=== PATIENT | male | born 1995 | race Caucasian/White ===

== ENCOUNTER 2017-09-12 20:11 | Emergency (ER) | payer OTHER ==
[2017-09-12 20:32] VITALS: TEMP 98.3
[2017-09-12 21:15] LABS: Basophils # (A) 0.1 k/uL (0-0.2); Basophils % (A) 1 %; Eosinophils # (A) 0.1 k/uL (0-0.7); Eosinophils % (A) 1 %; HCT 45.1 % (39.0-53.0); HGB 15.5 gm/dL (13.0-17.5); Lymphocytes # (A) 2.1 k/uL (1.0-4.8); Lymphocytes % (A) 27 %; MCHC 34.3 g/dL (31.0-37.0); MCV 81.5 fL (80.0-100.0); Mean Platelet Volume 6.6; Monocytes # (A) 0.4 k/uL (0-1.0); Monocytes % (A) 5 %; Neutrophils # (A) 5.1 k/uL (1.3-7.7); Neutrophils % (A) 64 %; Platelet Count 280 k/uL (150-450); RBC 5.53 m/uL (4.30-5.90); RDW 12.5 % (11.5-15.5); WBC 7.9 k/uL (3.8-10.6)
--- NOTE | 2017-09-12 21:21 | XR ---
EXAMINATION TYPE: XR chest 2V DATE OF EXAM: 09/12/2017 COMPARISON: 08/08/2011 HISTORY: Chest pain TECHNIQUE: Frontal and lateral views of the chest are obtained. FINDINGS: Heart and mediastinum are normal. Lungs are clear. Diaphragm is normal. Pulmonary vascular ity is normal. Bony thorax appears normal. IMPRESSION: Normal chest. No change.
[2017-09-12 21:25] LABS: ALT 22 U/L (21-72); AST 19 U/L (17-59); Albumin 4.9 g/dL (3.5-5.0); Alkaline Phosphatase 91 U/L (38-126); Anion Gap 16 mmol/L; Blood Urea Nitrogen 16 mg/dL (9-20); Calcium 10.3 mg/dL (8.4-10.2); Carbon Dioxide 18 mmol/L (22-30); Chloride 106 mmol/L (98-107); Glucose 95 mg/dL (74-99); Magnesium 1.8 mg/dL (1.6-2.3); Potassium 3.9 mmol/L (3.5-5.1); Sodium 140 mmol/L (137-145); Total Bilirubin 0.4 mg/dL (0.2-1.3); Total Protein 8.1 g/dL (6.3-8.2)
[2017-09-12 21:33] LABS: Creatine Kinase 84 U/L (55-170)
[2017-09-12] MEDS ORDERED: LORazepam 2 MG/ML INJ IV STA (21:39)
[2017-09-12 21:42] LABS: INR 1.1 (<1.2); Partial Thromboplastin Time 24.4 sec (22.0-30.0); Prothrombin Time 10.7 sec (9.0-12.0)
--- NOTE | 2017-09-12 21:42 | ED ---
General Adult HPI - General Chief complaint: Chest Pain Stated complaint: Chest Pain Time Seen by Provider: 09/12/17 21:21 Source: patient, family, RN notes reviewed Mode of arrival: ambulatory Limitations: no limitations - History of Present Illness Initial comments: Patient is a pleasant 22-year-old male presenting to the emergency Department with chest discomfort. Patient has had symptoms intermittently since April. Symptoms do seem somewhat worse the past week. Patient states symptoms worsened today following argument with his significant other. Patient has tightness in his chest. Patient does have associated dyspnea. Patient feels sweaty. Patient has tingling of his fingers of his right hand. Symptoms are not necessarily exertional. Onset today was during argument and not exertion. - Related Data Home Medications Medication Instructions Recorded Confirmed Timolol 0.5% Ophth Soln [Timoptic 1 drop BOTH EYES BID 09/12/17 09/12/17 0.5% Ophth Soln] Allergies Allergy/AdvReac Type Severity Reaction Status Date / Time sulfamethoxazole Allergy Anaphylaxis Verified 09/12/17 21:02 [From Bactrim] trimethoprim [From Bactrim] Allergy Anaphylaxis Verified 09/12/17 21:02 Review of Systems ROS Statement: Those systems with pertinent positive or pertinent negative responses have been documented in the HPI. ROS Other: All systems not noted in ROS Statement are negative. Constitutional: Denies: fever Eyes: Denies: eye pain ENT: Denies: ear pain Respiratory: Denies: cough Cardiovascular: Reports: chest pain Endocrine: Denies: fatigue Gastrointestinal: Denies: abdominal pain Genitourinary: Denies: dysuria Musculoskeletal: Denies: back pain Skin: Denies: rash Neurological: Denies: weakness Psychiatric: Reports: anxiety Past Medical History Additional Past Medical History / Comment(s): glaucoma History of Any Multi-Drug Resistant Organisms: None Reported Past Surgical History: Ear Surgery Additional Past Surgical History / Comment(s): cataract surgery, myringotomy, dental procedure Past Psychological History: No Psychological Hx Reported Smoking Status: Never smoker Past Alcohol Use History: None Reported Past Drug Use History: None Reported General Exam Limitations: no limitations General appearance: alert, in no apparent distress Head exam: Present: atraumatic Eye exam: Present: normal appearance, PERRL ENT exam: Present: normal oropharynx Neck exam: Present: normal inspection Respiratory exam: Present: normal lung sounds bilaterally, chest wall tenderness Cardiovascular Exam: Present: regular rate, normal rhythm Expanded Peripheral pulses: 2+: Radial (R), Radial (L), Dorsalis Pedis (R), Dorsalis Pedis (L) GI/Abdominal exam: Present: soft. Absent: distended, tenderness Extremities exam: Present: normal inspection. Absent: pedal edema, calf tenderness Neurological exam: Present: alert Psychiatric exam: Present: anxious Skin exam: Present: normal color Course Vital Signs 09/12/17 09/12/17 09/12/17 20:30 22:11 23:03 Temperature 98.3 F Pulse Rate 116 H 93 100 Respiratory 18 Rate Blood Pressure 139/80 123/76 125/72 O2 Sat by Pulse 100 99 97 Oximetry EKG Findings - EKG Comments: EKG Findings:: Sinus tachycardia 106. CA 172. QRS 78. QT 332. QTC 441. Normal axis. Normal QRS. No acute ST change. Medical Decision Making - Medical Decision Making Patient reexamined and significantly improved with Ativan. Patient is near symptom-free. Patient and family updated on results and need for follow-up. Patient does have an appointment with a new doctor on Saturday. - Lab Data Result diagrams: 09/12/17 21:02 09/12/17 21:02 Lab Results 09/12/17 09/12/17 09/12/17 Range/Units 21:02 21:02 21:02 WBC 7.9 (3.8-10.6) k/uL RBC 5.53 (4.30-5.90) m/uL Hgb 15.5 (13.0-17.5) gm/dL Hct 45.1 (39.0-53.0) % MCV 81.5 (80.0-100.0) fL MCH 28.0 (25.0-35.0) pg MCHC 34.3 (31.0-37.0) g/dL RDW 12.5 (11.5-15.5) % Plt Count 280 (150-450) k/uL Neutrophils % 64 % Lymphocytes % 27 % Monocytes % 5 % Eosinophils % 1 % Basophils % 1 % Neutrophils # 5.1 (1.3-7.7) k/uL Lymphocytes # 2.1 (1.0-4.8) k/uL Monocytes # 0.4 (0-1.0) k/uL Eosinophils # 0.1 (0-0.7) k/uL Basophils # 0.1 (0-0.2) k/uL PT (9.0-12.0) sec INR (<1.2) APTT (22.0-30.0) sec Sodium 140 (137-145) mmol/L Potassium 3.9 (3.5-5.1) mmol/L Chloride 106 (98-107) mmol/L Carbon Dioxide 18 L (22-30) mmol/L Anion Gap 16 mmol/L BUN 16 (9-20) mg/dL Creatinine 0.90 (0.66-1.25) mg/dL Est GFR (MDRD) Af Amer >60 (>60 ml/min/1.73 sqM) Est GFR (MDRD) Non-Af >60 (>60 ml/min/1.73 sqM) Glucose 95 (74-99) mg/dL Calcium 10.3 H (8.4-10.2) mg/dL Magnesium 1.8 (1.6-2.3) mg/dL Total Bilirubin 0.4 (0.2-1.3) mg/dL AST 19 (17-59) U/L ALT 22 (21-72) U/L Alkaline Phosphatase 91 (38-126) U/L Total Creatine Kinase 84 (55-170) U/L CK-MB (CK-2) 0.7 (0.0-2.4) ng/mL CK-MB (CK-2) Rel Index 0.8 Troponin I <0.012 (0.000-0.034) ng/mL Total Protein 8.1 (6.3-8.2) g/dL Albumin 4.9 (3.5-5.0) g/dL 09/12/17 Range/Units 21:02 WBC (3.8-10.6) k/uL RBC (4.30-5.90) m/uL Hgb (13.0-17.5) gm/dL Hct (39.0-53.0) % MCV (80.0-100.0) fL MCH (25.0-35.0) pg MCHC (31.0-37.0) g/dL RDW (11.5-15.5) % Plt Count (150-450) k/uL Neutrophils % % Lymphocytes % % Monocytes % % Eosinophils % % Basophils % % Neutrophils # (1.3-7.7) k/uL Lymphocytes # (1.0-4.8) k/uL Monocytes # (0-1.0) k/uL Eosinophils # (0-0.7) k/uL Basophils # (0-0.2) k/uL PT 10.7 (9.0-12.0) sec INR 1.1 (<1.2) APTT 24.4 (22.0-30.0) sec Sodium (137-145) mmol/L Potassium (3.5-5.1) mmol/L Chloride (98-107) mmol/L Carbon Dioxide (22-30) mmol/L Anion Gap mmol/L BUN (9-20) mg/dL Creatinine (0.66-1.25) mg/dL Est GFR (MDRD) Af Amer (>60 ml/min/1.73 sqM) Est GFR (MDRD) Non-Af (>60 ml/min/1.73 sqM) Glucose (74-99) mg/dL Calcium (8.4-10.2) mg/dL Magnesium (1.6-2.3) mg/dL Total Bilirubin (0.2-1.3) mg/dL AST (17-59) U/L ALT (21-72) U/L Alkaline Phosphatase (38-126) U/L Total Creatine Kinase (55-170) U/L CK-MB (CK-2) (0.0-2.4) ng/mL CK-MB (CK-2) Rel Index Troponin I (0.000-0.034) ng/mL Total Protein (6.3-8.2) g/dL Albumin (3.5-5.0) g/dL - Radiology Data Radiology results: image reviewed (Chest x-ray shows no acute process) Disposition Clinical Impression: Chest pain Disposition: HOME SELF-CARE Condition: Stable Instructions: Chest Pain (ED) Additional Instructions: Please follow-up with your new physician Saturday as scheduled. Return for increased pain, difficulty breathing, worsening or changing symptoms or other concerns. Consider cardiac echo. Referrals: Jose Guadalupe Dolan MD [Primary Care Provider] - 1-2 days Time of Disposition: 23:08
[2017-09-12 21:43] LABS: Creatine Kinase MB 0.7 ng/mL (0.0-2.4)
[2017-09-12 21:46] LABS: Troponin I <0.012 ng/mL (0.000-0.034)
[2017-09-12 22:12] VITALS: RESP 18
[2017-09-12 23:04] VITALS: BP 125/72; PULSE 100
== END 2017-09-12 23:20 | disposition home or self-care (01) ==
LOC: EC 20:11
DX: R07.89 Other chest pain (principal); R06.00 Dyspnea, unspecified; R20.2 Paresthesia of skin; F41.9 Anxiety disorder, unspecified; H40.9 Unspecified glaucoma; Z79.899 Other long term (current) drug therapy; Z88.1 Allergy status to other antibiotic agents
CPT/HCPCS: 36415; 93005; 80053; 82550; 82553; 83735; 84484; 85025; 85610; 85730; 71046; 99285; 96374; J2060

== ENCOUNTER 2017-10-03 22:38 | Emergency (ER) | payer OTHER ==
[2017-10-03 22:48] VITALS: RESP 18; TEMP 97.6
[2017-10-03] MEDS ORDERED: SODIUM CHLORIDE 0.9% 1,000 ML IV STA ×2 (23:01)
[2017-10-03] MEDS ORDERED: MORPHINE SULFATE 4 MG/ML SYRINGE IV STA (23:01)
[2017-10-03] MEDS ORDERED: SODIUM CHLORIDE 0.9% 500 ML IV STA (23:01)
[2017-10-03] MEDS ORDERED: LORazepam 2 MG/ML INJ IV STA (23:02)
[2017-10-03] MEDS ORDERED: RX INFO: IV CONTRAST WAS GIVEN 1 EACH MISC MISCELLANE PRN (23:03)
--- NOTE | 2017-10-03 23:04 | ED ---
General Adult HPI - General Chief complaint: Chest Pain Stated complaint: chest pain Time Seen by Provider: 10/03/17 22:42 Source: patient, EMS, RN notes reviewed, old records reviewed Mode of arrival: EMS Limitations: no limitations - History of Present Illness Initial comments: This is a 22-year-old male the ER for evaluation of chest pain. Anterior left- sided chest pain epigastric chest pain. Patient was evaluated in the ER recently for similar issues no cause found, did have outpatient ultrasound unsure of results. Patient denies recent travel history no sick contacts. No fevers no significant cough or congestion. Patient denies shortness of breath. Patient states he could be a little dehydrated denies drugs or alcohol use. Denies smoking. Patient states chest pain is anterior started tonight and currently is associated with mild shortness of breath - Related Data Home Medications Medication Instructions Recorded Confirmed Timolol 0.5% Ophth Soln [Timoptic 1 drop BOTH EYES BID 09/12/17 10/03/17 0.5% Ophth Soln] Ergocalciferol [Vitamin D2] 100,000 unit PO TUSA 10/03/17 10/03/17 Levothyroxine Sodium [Synthroid] 88 mcg PO HS 10/03/17 10/03/17 Ranitidine HCl [Zantac] 300 mg PO DAILY 10/03/17 10/03/17 Allergies Allergy/AdvReac Type Severity Reaction Status Date / Time sulfamethoxazole Allergy Anaphylaxis Verified 09/12/17 21:02 [From Bactrim] trimethoprim [From Bactrim] Allergy Anaphylaxis Verified 09/12/17 21:02 Review of Systems ROS Statement: Those systems with pertinent positive or pertinent negative responses have been documented in the HPI. ROS Other: All systems not noted in ROS Statement are negative. Past Medical History Additional Past Medical History / Comment(s): glaucoma History of Any Multi-Drug Resistant Organisms: None Reported Past Surgical History: Ear Surgery Additional Past Surgical History / Comment(s): cataract surgery, myringotomy, dental procedure Past Psychological History: No Psychological Hx Reported Smoking Status: Never smoker Past Alcohol Use History: None Reported Past Drug Use History: None Reported General Exam Limitations: no limitations General appearance: alert, in no apparent distress, anxious Head exam: Present: atraumatic, normocephalic, normal inspection Eye exam: Present: normal appearance, PERRL, EOMI. Absent: scleral icterus, conjunctival injection, periorbital swelling ENT exam: Present: normal exam, mucous membranes dry Neck exam: Present: normal inspection. Absent: tenderness, meningismus, lymphadenopathy Respiratory exam: Present: normal lung sounds bilaterally, accessory muscle use , prolonged expiratory. Absent: respiratory distress, wheezes, rales, rhonchi, stridor Cardiovascular Exam: Present: normal rhythm, tachycardia, normal heart sounds. Absent: systolic murmur, diastolic murmur, rubs, gallop, clicks GI/Abdominal exam: Present: soft, normal bowel sounds. Absent: distended, tenderness, guarding, rebound, rigid Extremities exam: Present: normal inspection, full ROM, normal capillary refill. Absent: tenderness, pedal edema, joint swelling, calf tenderness Back exam: Present: normal inspection Neurological exam: Present: alert, oriented X3, CN II-XII intact Psychiatric exam: Present: normal affect, normal mood Skin exam: Present: warm, dry, intact, normal color. Absent: rash Course Vital Signs 10/03/17 22:39 Temperature 97.6 F Pulse Rate 97 Respiratory 18 Rate Blood Pressure 133/84 O2 Sat by Pulse 98 Oximetry - Reevaluation(s) Reevaluation #1: 10/03/17 23:38 Patient does have improvement with pain control, anxiolysis Reevaluation #2: 10/03/17 23:38 Medical record including prior ER visit are reviewed EKG Findings - EKG Comments: EKG Findings:: EKG shows sinus tach rate of 102, GA 154, QRS 78, QTC 432 Medical Decision Making - Medical Decision Making 19 female the ER for evaluation of chest pain. CT negative. Patient will continue outpatient workup in regards to cause of his chest pain. - Lab Data Result diagrams: 10/03/17 23:09 10/03/17 23:09 Lab Results 10/03/17 10/03/17 Range/Units 23:09 23:09 WBC 6.4 (3.8-10.6) k/uL RBC 4.83 (4.30-5.90) m/uL Hgb 13.9 (13.0-17.5) gm/dL Hct 38.2 L (39.0-53.0) % MCV 79.0 L (80.0-100.0) fL MCH 28.7 (25.0-35.0) pg MCHC 36.3 (31.0-37.0) g/dL RDW 12.3 (11.5-15.5) % Plt Count 228 (150-450) k/uL Neutrophils % 63 % Lymphocytes % 27 % Monocytes % 6 % Eosinophils % 1 % Basophils % 1 % Neutrophils # 4.0 (1.3-7.7) k/uL Lymphocytes # 1.7 (1.0-4.8) k/uL Monocytes # 0.4 (0-1.0) k/uL Eosinophils # 0.1 (0-0.7) k/uL Basophils # 0.0 (0-0.2) k/uL Sodium 141 (137-145) mmol/L Potassium 3.4 L (3.5-5.1) mmol/L Chloride 108 H (98-107) mmol/L Carbon Dioxide 18 L (22-30) mmol/L Anion Gap 15 mmol/L BUN 18 (9-20) mg/dL Creatinine 0.80 (0.66-1.25) mg/dL Est GFR (CKD-EPI)AfAm >90 (>60 ml/min/1.73 sqM) Est GFR (CKD-EPI)NonAf >90 (>60 ml/min/1.73 sqM) Glucose 87 (74-99) mg/dL Calcium 9.5 (8.4-10.2) mg/dL Magnesium 1.8 (1.6-2.3) mg/dL Total Bilirubin 0.4 (0.2-1.3) mg/dL AST 18 (17-59) U/L ALT 22 (21-72) U/L Alkaline Phosphatase 74 (38-126) U/L Total Protein 7.0 (6.3-8.2) g/dL Albumin 4.2 (3.5-5.0) g/dL Lipase 141 (23-300) U/L - Radiology Data Radiology results: report reviewed (CTA chest negative for acute disease), image reviewed Disposition Clinical Impression: Chest pain Disposition: HOME SELF-CARE Condition: Good Instructions: Chest Pain (ED) Referrals: Jose Guadalupe Dolan MD [Primary Care Provider] - 1-2 days
[2017-10-03 23:26] LABS: Basophils % (A) 1 %; Eosinophils # (A) 0.1 k/uL (0-0.7); Eosinophils % (A) 1 %; HCT 38.2 % (39.0-53.0); HGB 13.9 gm/dL (13.0-17.5); Lymphocytes # (A) 1.7 k/uL (1.0-4.8); Lymphocytes % (A) 27 %; MCH 28.7 pg (25.0-35.0); MCHC 36.3 g/dL (31.0-37.0); Mean Platelet Volume 6.4; Monocytes # (A) 0.4 k/uL (0-1.0); Monocytes % (A) 6 %; Neutrophils % (A) 63 %; Platelet Count 228 k/uL (150-450); RBC 4.83 m/uL (4.30-5.90); RDW 12.3 % (11.5-15.5); WBC 6.4 k/uL (3.8-10.6)
--- NOTE | 2017-10-03 23:28 | CT ---
EXAMINATION TYPE: CT angio chest DATE OF EXAM: 10/03/2017 11:22 PM COMPARISON: NONE HISTORY: No prev. CT chest. Chest pain. hx. of asthma. CT DLP: 134.70 mGycm Automated exposure control for dose reduction was used. CONTRAST: CTA scan of the thorax is performed with IV Contrast, patient injected with 60 mL of Omnipaque 350, p ulmonary embolism protocol. There are 3-D post processed images.. FINDINGS: The lungs are clear of infiltrate. There is no evidence of pleural effusion. There is no evidence of a pulmonary mass. Thoracic aorta appears normal. There is no sign of aneurysm or dissection. There is normal contrast o pacification of the pulmonary arteries. I see no filling defect. There is no mediastinal adenopathy. There are no hilar masses. There is no pericardial effusion. Heart size is normal. The bony thorax appears intact. There is a 1 cm right bronchial lymph node. IMPRESSION: NEGATIVE CT ANGIOGRAM OF THE CHEST. NO EVIDENCE OF PULMONARY EMBOLISM.
[2017-10-03 23:35] LABS: ALT 22 U/L (21-72); AST 18 U/L (17-59); Albumin 4.2 g/dL (3.5-5.0); Alkaline Phosphatase 74 U/L (38-126); Anion Gap 15 mmol/L; Blood Urea Nitrogen 18 mg/dL (9-20); Calcium 9.5 mg/dL (8.4-10.2); Carbon Dioxide 18 mmol/L (22-30); Chloride 108 mmol/L (98-107); Glucose 87 mg/dL (74-99); Lipase 141 U/L (23-300); Potassium 3.4 mmol/L (3.5-5.1); Sodium 141 mmol/L (137-145); Total Bilirubin 0.4 mg/dL (0.2-1.3)
[2017-10-03] MEDS ORDERED: POTASSIUM CHLORIDE ER 20 MEQ TAB.ER PO STA (23:38)
[2017-10-03 23:44] LABS: D-Dimer <0.17 mg/L FEU (<0.60); INR 1.1 (<1.2); Partial Thromboplastin Time 24.6 sec (22.0-30.0); Prothrombin Time 11.1 sec (9.0-12.0)
[2017-10-03 23:48] LABS: Creatine Kinase 90 U/L (55-170)
[2017-10-04 00:01] LABS: Creatine Kinase MB 0.9 ng/mL (0.0-2.4); Troponin I <0.012 ng/mL (0.000-0.034)
[2017-10-04 00:05] VITALS: BP 113/68
[2017-10-04 00:25] VITALS: PULSE 98
== END 2017-10-04 00:25 | disposition home or self-care (01) ==
LOC: EC 22:38
DX: R07.89 Other chest pain (principal); R00.0 Tachycardia, unspecified; R06.02 Shortness of breath; R10.13 Epigastric pain; H40.9 Unspecified glaucoma; Z79.899 Other long term (current) drug therapy; Z88.1 Allergy status to other antibiotic agents
CPT/HCPCS: 36415; 93005; 85379; 80053; 82550; 82553; 83690; 83735; 84484; 85025; 85610; 85730; 71275; 99285; 96374; 96375; 96361; J2060; J2270; Q9967

== ENCOUNTER 2017-12-12 19:07 | Emergency (ER) | payer OTHER ==
[2017-12-12 19:13] VITALS: TEMP 99
[2017-12-12] MEDS ORDERED: SODIUM CHLORIDE 0.9% 500 ML IV STA (19:32)
[2017-12-12] MEDS ORDERED: KETOROLAC 30 MG/ML 1 ML VIAL IVP STA (19:32)
[2017-12-12] MEDS ORDERED: CIPROFLOXACIN-DEXAMETH 0.3-0.1% DROPS 7.5 ML BTL LEFT EAR STA (19:39)
--- NOTE | 2017-12-12 19:39 | ED ---
Chest Pain HPI - General Chief Complaint: Chest Pain Stated Complaint: Chest pain Time Seen by Provider: 12/12/17 19:15 Source: patient Mode of arrival: ambulatory Limitations: no limitations - History of Present Illness Initial Comments: 22-year-old male patient presents to the emergency department today for complaints of left-sided chest pain that started around 1:30 this afternoon. Patient states he has been having intermittent episodes of this chest pain since July. Patient states that the pain feels like a knife is stabbing him in the chest. He states he does feel short of breath at times with this. States that he was at work today when the pain started, states that he became very dizzy and blacked out. States that he was able to make it to a chair prior to losing consciousness. Patient denies any nausea or vomiting. Patient states he is also having severe left ear pain and has having bloody drainage from the ear. He denies any fevers or chills. Denies any cough or congestion. Patient denies any recent rash, abdominal pain, diarrhea, constipation, back pain, numbness, tingling, weakness, hematuria, dysuria, urinary urgency, urinary frequency, headache, visual changes, or any other complaints. - Related Data Home Medications Medication Instructions Recorded Confirmed Timolol 0.5% Ophth Soln [Timoptic 1 drop BOTH EYES BID 09/12/17 12/12/17 0.5% Ophth Soln] Ergocalciferol [Vitamin D2] 50,000 unit PO TUFR 10/03/17 12/12/17 Levothyroxine Sodium [Synthroid] 88 mcg PO DAILY 10/03/17 12/12/17 ALPRAZolam [Xanax] 0.25 mg PO BID PRN 12/12/17 12/12/17 Acetaminophen [Tylenol] 325 mg PO Q4H PRN 12/12/17 12/12/17 Ibuprofen [Motrin Ib] 400 mg PO Q6H PRN 12/12/17 12/12/17 Previous Rx's Medication Instructions Recorded Amoxicillin 875 mg PO Q12HR #20 tablet 12/12/17 Ciprofloxacin-Hc Otic Susp [Cipro 3 drops LEFT EAR BID #15 ml 12/12/17 Hc Otic Suspension] Ibuprofen [Motrin] 600 mg PO Q8HR PRN #30 tab 12/12/17 Allergies Allergy/AdvReac Type Severity Reaction Status Date / Time sulfamethoxazole Allergy Anaphylaxis Verified 12/12/17 20:14 [From Bactrim] trimethoprim [From Bactrim] Allergy Anaphylaxis Verified 12/12/17 20:14 Review of Systems ROS Statement: Those systems with pertinent positive or pertinent negative responses have been documented in the HPI. ROS Other: All systems not noted in ROS Statement are negative. EKG Findings - EKG Comments: EKG Findings:: EKG obtained in 1925 shows normal sinus rhythm with a ventricular rate of 94, AK interval 164, QRS duration 88, QT 344, QTC 430. No evidence of ST elevation or depression. Past Medical History Additional Past Medical History / Comment(s): glaucoma History of Any Multi-Drug Resistant Organisms: None Reported Past Surgical History: Ear Surgery Additional Past Surgical History / Comment(s): cataract surgery, myringotomy, dental procedure Past Psychological History: No Psychological Hx Reported Smoking Status: Never smoker Past Alcohol Use History: None Reported Past Drug Use History: None Reported General Exam Limitations: no limitations General appearance: alert, in no apparent distress, other (This is a well- developed, well-nourished adult male patient in no acute distress. Vital signs upon presentation are temperature 99.2F, pulse 88, respirations 16, blood pressure 122/74, pulse ox 98% on room air.) Eye exam: Present: normal appearance, PERRL, EOMI. Absent: scleral icterus, conjunctival injection, periorbital swelling ENT exam: Present: normal exam, normal oropharynx, mucous membranes moist. Absent: TM's normal bilaterally (Left tympanic membrane is bulging, erythematous , and there is frothy discharge near the tympanic membrane, partially obscuring the tympanic membrane.) Neck exam: Present: normal inspection. Absent: tenderness, meningismus, lymphadenopathy Respiratory exam: Present: normal lung sounds bilaterally. Absent: respiratory distress, wheezes, rales, rhonchi, stridor, chest wall tenderness Cardiovascular Exam: Present: regular rate, normal rhythm, normal heart sounds. Absent: systolic murmur, diastolic murmur, rubs, gallop, clicks GI/Abdominal exam: Present: soft, normal bowel sounds. Absent: distended, tenderness, guarding, rebound, rigid Neurological exam: Present: alert, oriented X3, CN II-XII intact Psychiatric exam: Present: normal affect, normal mood Skin exam: Present: warm, dry, intact, normal color. Absent: rash Course Vital Signs 12/12/17 19:09 Temperature 99 F Pulse Rate 88 Respiratory 16 Rate Blood Pressure 122/74 O2 Sat by Pulse 98 Oximetry Chest Pain MDM - MDM RADIOLOGY:Two-view x-ray of the chest was obtained. The lungs are clear. Pleural spaces are negative. Cardiac silhouette is not enlarged. The mediastinal pleural Kirby are unremarkable. Skeletal structures are intact without focal findings. Soft tissues are unremarkable. Impression by Dr. Lisa Vargas shows no acute process. 22-year-old male patient presented to the emergency department today for evaluation of left-sided chest pain and syncopal episode. Physical examination is unremarkable. EKG shows normal sinus rhythm. Labs are unremarkable. D- dimer is negative, troponins negative. Chest x-ray shows no acute cardiopulmonary process. Patient was also complaining of some left-sided ear pain. Evaluation of the tympanic membrane does reveal erythema with frothy drainage obscuring the TM. 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 I did also give name for referral to cardiology for possible Holter monitor placement. Did discuss findings and results of both patient and his mother. Patient will be given a prescription for amoxicillin, Cipro eardrops, and ibuprofen for pain control. Return parameters discussed in detail. He verbalizes understanding and agrees with this plan. Disposition Clinical Impression: Rupture of left tympanic membrane, Chest pain Disposition: HOME SELF-CARE Condition: Good Instructions: Chest Pain (ED), Ruptured Eardrum (ED) Additional Instructions: Take medications as directed. Follow-up with ENT specialist for further evaluation. Up with cardiology for further evaluation. Return here immediately for any new, worsening, or concerning symptoms. Prescriptions: Amoxicillin 875 mg PO Q12HR #20 tablet Ciprofloxacin-Hc Otic Susp [Cipro Hc Otic Suspension] 3 drops LEFT EAR BID #15 ml Ibuprofen [Motrin] 600 mg PO Q8HR PRN #30 tab PRN Reason: Pain Is patient prescribed a controlled substance at d/c from ED?: No Referrals: Markos Cristobal NPC [REFERRING] - 1-2 days Brian Renae DO [Doctor of Osteopathic Medicine] - 1-2 days Kirk Garcia MD [STAFF PHYSICIAN] - 1-2 days Time of Disposition: 21:04
[2017-12-12 20:01] LABS: Basophils % (A) 0 %; Eosinophils # (A) 0.2 k/uL (0-0.7); Eosinophils % (A) 2 %; HCT 42.8 % (39.0-53.0); HGB 14.6 gm/dL (13.0-17.5); Lymphocytes # (A) 1.5 k/uL (1.0-4.8); Lymphocytes % (A) 15 %; MCH 27.9 pg (25.0-35.0); MCHC 34.1 g/dL (31.0-37.0); MCV 81.8 fL (80.0-100.0); Mean Platelet Volume 6.6; Monocytes # (A) 0.6 k/uL (0-1.0); Monocytes % (A) 6 %; Neutrophils # (A) 7.8 k/uL (1.3-7.7); Neutrophils % (A) 76 %; Platelet Count 210 k/uL (150-450); RBC 5.23 m/uL (4.30-5.90); RDW 12.6 % (11.5-15.5); WBC 10.2 k/uL (3.8-10.6)
[2017-12-12 20:14] LABS: Partial Thromboplastin Time 23.8 sec (22.0-30.0); Prothrombin Time 10.2 sec (9.0-12.0)
[2017-12-12 20:16] LABS: D-Dimer <0.17 mg/L FEU (<0.60)
[2017-12-12 20:24] LABS: Creatine Kinase 52 U/L (55-170)
[2017-12-12 20:25] LABS: ALT 31 U/L (21-72); AST 18 U/L (17-59); Albumin 4.7 g/dL (3.5-5.0); Alkaline Phosphatase 81 U/L (38-126); Anion Gap 16 mmol/L; Blood Urea Nitrogen 15 mg/dL (9-20); Calcium 9.8 mg/dL (8.4-10.2); Carbon Dioxide 22 mmol/L (22-30); Chloride 104 mmol/L (98-107); Glucose 96 mg/dL (74-99); Magnesium 1.8 mg/dL (1.6-2.3); Potassium 4.3 mmol/L (3.5-5.1); Sodium 142 mmol/L (137-145); Total Bilirubin 0.5 mg/dL (0.2-1.3); Total Protein 7.5 g/dL (6.3-8.2)
[2017-12-12 20:37] LABS: Creatine Kinase MB 0.3 ng/mL (0.0-2.4); Troponin I <0.012 ng/mL (0.000-0.034)
--- NOTE | 2017-12-12 20:56 | XR ---
EXAMINATION: XR chest 2V DATE AND TIME: 12/12/2017 8:05 PM ORDERING PROVIDER: Sahra Rivera CLINICAL INDICATION: Chest Pain sinus congestion TECHNIQUE: PA and lateral COMPARISON: 09/12/2017 DESCRIPTION: The lungs are clear. The pleural spaces are negative. The cardiac silhouette is not enlarged. The mediastinal and pleural silhouettes are unremarkable. The skeletal structures are intact without focal findings. The soft tissues are unremarkable. IMPRESSION: NO ACUTE PROCESS.
[2017-12-12 21:54] VITALS: BP 118/80; PULSE 100; RESP 18
== END 2017-12-12 21:53 | disposition home or self-care (01) ==
LOC: EC 19:07
DX: H72.92 Unspecified perforation of tympanic membrane, left ear (principal); R07.9 Chest pain, unspecified; R42 Dizziness and giddiness; H40.9 Unspecified glaucoma; Z79.899 Other long term (current) drug therapy; Z88.2 Allergy status to sulfonamides
CPT/HCPCS: 36415; 93005; 85379; 80053; 82550; 82553; 83735; 84484; 85025; 85610; 85730; 71046; 99285; 96374; 96361 ×2; J1885

== ENCOUNTER 2018-08-13 03:43 | Emergency (ER) | payer OTHER ==
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
[2018-08-13 03:48] VITALS: RESP 16; TEMP 98.2
[2018-08-13] MEDS ORDERED: ORPHENADRINE 30 MG/ML 2 ML VIAL IM STA (03:58)
[2018-08-13] MEDS ORDERED: KETOROLAC 30 MG/ML 1 ML VIAL IM STA (03:58)
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
[2018-08-13 04:49] VITALS: BP 132/89; PULSE 69
== END 2018-08-13 04:47 | disposition home or self-care (01) ==
LOC: EC 03:43
DX: S19.9XXA Unspecified injury of neck, initial encounter (principal); S39.92XA Unspecified injury of lower back, initial encounter; M54.9 Dorsalgia, unspecified; Z79.899 Other long term (current) drug therapy; Z79.890 Hormone replacement therapy; Z88.2 Allergy status to sulfonamides; V47.5XXA Car driver injured in collision with fixed or stationary object in traffic accident, initial encounter; Y92.410 Unspecified street and highway as the place of occurrence of the external cause
CPT/HCPCS: 72070; 72040; 72100; 99284; 96372 ×2; J2360; J1885

== ENCOUNTER → 2019-05-25 | Outpatient (CLI) | payer BC ==
--- NOTE | 2019-05-26 07:34 | ECHOF ---
Referral Reason:R06.09 Dyspnea MEASUREMENTS -------- HEIGHT: 165.1 cm WEIGHT: 63.5 kg BP: RVIDd: 3.6 cm (< 3.3) IVSd: 0.9 cm (0.6 - 1.1) LVIDd: 4.0 cm (3.9 - 5.3) LVPWd: 1.0 cm (0.6 - 1.1) IVSs: 1.0 cm LVIDs: 2.6 cm LVPWs: 1.4 cm LAESV Index (A-L): 24.56 ml/m Ao Diam: 2.2 cm (2.0 - 3.7) AV Cusp: 1.8 cm (1.5 - 2.6) LA Diam: 2.6 cm (2.7 - 3.8) MV EXCURSION: 12.495 mm (> 18.000) MV EF SLOPE: 115 mm/s (70 - 150) EPSS: 0.7 cm MV E Bobo: 0.94 m/s MV DecT: 277 ms MV A Bobo: 0.41 m/s MV E/A Ratio: 2.32 RAP: 5.00 mmHg RVSP: 18.98 mmHg FINDINGS -------- Sinus rhythm. This was a technically good study. The left ventricular size is normal. Left ventricular wall thickness is normal. There is normal g lobal left ventricular contractility. Overall left ventricular systolic function is normal with, an EF between 60 - 65 %. The diastolic filling pattern is normal for the age of the patient 8.16. The right ventricle is normal in size. Normal LA size by volume 22+/-6 ml/m2. The right atrial size is normal. Interatrial and interventricular septum intact. The aortic valve is trileaflet and appears structurally normal. There is no evidence of aortic regu rgitation. There is no evidence of aortic stenosis. No mitral regurgitation. Mild tricuspid regurgitation present. There is no evidence of pulmonary hypertension. The right v entricular systolic pressure, as measured by Doppler, is 18.98mmHg. There is no pulmonic regurgitation present. The aortic root size is normal. Normal inferior vena cava with normal inspiratory collapse consistent with estimated right atrial pre ssure of 5 mmHg. There is no pericardial effusion. CONCLUSIONS -------- 1. Sinus rhythm. 2. This was a technically good study. 3. The left ventricular size is normal. 4. Left ventricular wall thickness is normal. 5. There is normal global left ventricular contractility. 6. Overall left ventricular systolic function is normal with, an EF between 60 - 65 %. 7. The diastolic filling pattern is normal for the age of the patient 8.16 8. The right ventricle is normal in size. 9. Normal LA size by volume 22+/-6 ml/m2. 10. The right atrial size is normal. 11. Interatrial and interventricular septum intact. 12. The aortic valve is trileaflet and appears structurally normal. 13. There is no evidence of aortic regurgitation. 14. There is no evidence of aortic stenosis. 15. No mitral regurgitation. 16. Mild tricuspid regurgitation present. 17. There is no evidence of pulmonary hypertension. 18. The right ventricular systolic pressure, as measured by Doppler, is 18.98mmHg. 19. There is no pulmonic regurgitation present. 20. The aortic root size is normal. 21. Normal inferior vena cava with normal inspiratory collapse consistent with estimated right atrial pressure of 5 mmHg. 22. There is no pericardial effusion. ELECTION JUDGE: Radha Lopez RDCS
== END ==
LOC: RADECHMAIN 15:24
PROVIDERS: ATTEND Family Medicine
DX: I07.1 Rheumatic tricuspid insufficiency (principal)
CPT/HCPCS: 93306

== ENCOUNTER → 2019-12-12 | Outpatient (CLI) | payer BC ==
--- NOTE | 2019-12-12 07:19 | CT ---
EXAMINATION TYPE: CT abdomen pelvis wo con DATE OF EXAM: 12/12/2019 COMPARISON: Previous study dated 08/08/2011 HISTORY: black stool. lower abd pelvic pain CT DLP: 390.3 mGycm Automated exposure control for dose reduction was used. FINDINGS: Visualized portions of the lungs are clear. There is no pleural or pericardial fluid. The h eart is not enlarged. Within the abdomen, the liver and gallbladder are normal. Spleen is upper limits of normal in size. Both adrenal glands are normal. There is no evidence of hydronephrosis or nephrolithiasis. The pancreas is not well-visualized. There is no significant retroperitoneal, iliac or inguinal adenopathy. The bladder is unremarkable. There is no significant diverticular change and there is no radiographic evidence of diverticulitis. The appendix is not visualized with certainty. There is no pericecal inflammatory change. Small bowel loops are normal. There is no free fluid and no free air. IMPRESSION: 1. NO SIGNIFICANT INFLAMMATORY CHANGE. 2. FAILURE TO VISUALIZE THE APPENDIX. 3. NO EVIDENCE OF NEPHROLITHIASIS OR HYDRONEPHROSIS. 4. LACK OF ORAL AND INTRAVENOUS CONTRAST LIMITS THE DIAGNOSTIC CAPABILITIES OF THIS STUDY.
== END | disposition home or self-care (01) ==
LOC: RADCTMAIN 06:48
PROVIDERS: ATTEND Family Medicine
DX: R10.9 Unspecified abdominal pain (principal)
CPT/HCPCS: 74176

== ENCOUNTER 2020-07-05 16:28 | Emergency (ER) | payer BC ==
[2020-07-05] MEDS ORDERED: SODIUM CHLORIDE 0.9% 500 ML 500 ML IV STA (17:15)
[2020-07-05] MEDS ORDERED: SODIUM CHLORIDE 0.9% 1,000 ML IV ONE (17:17)
--- NOTE | 2020-07-05 17:17 | ED ---
General Adult HPI - General Chief complaint: Abdominal Pain Stated complaint: Bloody Stool Time Seen by Provider: 07/05/20 16:35 Source: patient, RN notes reviewed, old records reviewed Mode of arrival: ambulatory Limitations: no limitations - History of Present Illness Initial comments: This is a 25-year-old male who presents emergency department stating that since yesterday he has had right lower quadrant abdominal pain. Patient states he also has had black stools and quite loose and she had multiple episodes of this yesterday and today. Patient states he also has had some bright red blood as well. Patient denies any history of hemorrhoids. Patient denies any history of inflammatory bowel disease. Patient denies any blood thinners. Patient denies any fever chills per patient is difficulty breathing shortest breath or chest pain. Patient denies any back pain. Patient denies dysuria hematuria urinary frequency. - Related Data Home Medications Medication Instructions Recorded Confirmed Timolol 0.5% Ophth Soln [Timoptic 1 drop BOTH EYES BID 09/12/17 12/12/17 0.5% Ophth Soln] Ergocalciferol [Vitamin D2] 50,000 unit PO TUFR 10/03/17 12/12/17 Levothyroxine Sodium [Synthroid] 88 mcg PO DAILY 10/03/17 12/12/17 ALPRAZolam [Xanax] 0.25 mg PO BID PRN 12/12/17 12/12/17 Acetaminophen [Tylenol] 325 mg PO Q4H PRN 12/12/17 12/12/17 Ibuprofen [Motrin Ib] 400 mg PO Q6H PRN 12/12/17 12/12/17 Previous Rx's Medication Instructions Recorded Amoxicillin 875 mg PO Q12HR #20 tablet 12/12/17 Ciprofloxacin-Hc Otic Susp [Cipro 3 drops LEFT EAR BID #15 ml 12/12/17 Hc Otic Suspension] Ibuprofen [Motrin] 600 mg PO Q8HR PRN #30 tab 12/12/17 Ibuprofen [Motrin] 800 mg PO TID #60 tab 08/13/18 Methocarbamol [Robaxin-750] 750 mg PO TID #30 tablet 08/13/18 Allergies Allergy/AdvReac Type Severity Reaction Status Date / Time Pertussis Vaccines Allergy Unknown Verified 07/05/20 16:35 Childhood sulfamethoxazole Allergy Anaphylaxis Verified 07/05/20 16:34 [From Bactrim] trimethoprim [From Bactrim] Allergy Anaphylaxis Verified 07/05/20 16:34 Review of Systems ROS Statement: Those systems with pertinent positive or pertinent negative responses have been documented in the HPI. ROS Other: All systems not noted in ROS Statement are negative. Past Medical History Additional Past Medical History / Comment(s): glaucoma, IBS History of Any Multi-Drug Resistant Organisms: None Reported Past Surgical History: Ear Surgery Additional Past Surgical History / Comment(s): cataract surgery, myringotomy, dental procedure Past Psychological History: No Psychological Hx Reported Smoking Status: Never smoker Past Alcohol Use History: None Reported Past Drug Use History: None Reported General Exam - General Exam Comments Initial Comments: GENERAL: Patient is well-developed and well-nourished. Patient is nontoxic and well- hydrated and is in mild distress. ENT: Neck is soft and supple. No significant lymphadenopathy is noted. Oropharynx is clear. Moist mucous membranes. Neck has full range of motion without eliciting any pain. EYES: The sclera were anicteric and conjunctiva were pink and moist. Extraocular movements were intact and pupils were equal round and reactive to light. Eyelids were unremarkable. PULMONARY: Unlabored respirations. Good breath sounds bilaterally. No audible rales rhonchi or wheezing was noted. CARDIOVASCULAR: There is a regular rate and rhythm without any murmurs gallops or rubs. ABDOMEN: Patient's has right lower quadrant abdominal tenderness no rebound. SKIN: Skin is clear with no lesions or rashes and otherwise unremarkable. NEUROLOGIC: Patient is alert and oriented x3. Cranial nerves II through XII are grossly intact. Motor and sensory are also intact. Normal speech, volume and content. Symmetrical smile. MUSCULOSKELETAL: Normal extremities with adequate strength and full range of motion. LYMPHATICS: No significant lymphadenopathy is noted PSYCHIATRIC: Normal psychiatric evaluation. RECTAL: On rectal exam there was no obvious site of bleeding no hemorrhoids noted Limitations: no limitations Course Vital Signs 07/05/20 16:31 Temperature 99.0 F Pulse Rate 118 H Respiratory 20 Rate Blood Pressure 141/85 O2 Sat by Pulse 97 Oximetry Medical Decision Making - Medical Decision Making CT shows no acute abnormality. Patient she will call but a stable vitals are stable. Patient will be directed to follow up with a surgeon. - Lab Data Result diagrams: 07/05/20 17:31 07/05/20 17:31 Lab Results 07/05/20 07/05/20 Range/Units 17:31 17:31 WBC 6.0 (3.8-10.6) k/uL RBC 5.70 (4.30-5.90) m/uL Hgb 16.8 (13.0-17.5) gm/dL Hct 47.4 (39.0-53.0) % MCV 83.1 (80.0-100.0) fL MCH 29.5 (25.0-35.0) pg MCHC 35.5 (31.0-37.0) g/dL RDW 11.9 (11.5-15.5) % Plt Count 216 (150-450) k/uL MPV 6.7 Neutrophils % 62 % Lymphocytes % 23 % Monocytes % 8 % Eosinophils % 2 % Basophils % 2 % Neutrophils # 3.7 (1.3-7.7) k/uL Lymphocytes # 1.4 (1.0-4.8) k/uL Monocytes # 0.5 (0-1.0) k/uL Eosinophils # 0.1 (0-0.7) k/uL Basophils # 0.1 (0-0.2) k/uL Sodium 139 (137-145) mmol/L Potassium 4.2 (3.5-5.1) mmol/L Chloride 106 (98-107) mmol/L Carbon Dioxide 22 (22-30) mmol/L Anion Gap 11 mmol/L BUN 11 (9-20) mg/dL Creatinine 0.79 (0.66-1.25) mg/dL Est GFR (CKD-EPI)AfAm >90 (>60 ml/min/1.73 sqM) Est GFR (CKD-EPI)NonAf >90 (>60 ml/min/1.73 sqM) Glucose 99 (74-99) mg/dL Calcium 10.2 (8.4-10.2) mg/dL Total Bilirubin 0.5 (0.2-1.3) mg/dL AST 53 (17-59) U/L ALT 111 H (4-49) U/L Alkaline Phosphatase 82 (38-126) U/L Total Protein 8.6 H (6.3-8.2) g/dL Albumin 5.2 H (3.5-5.0) g/dL Amylase 77 (30-110) U/L Lipase 123 (23-300) U/L Disposition Clinical Impression: Abdominal pain, Lower GI bleed Disposition: HOME SELF-CARE Instructions (If sedation given, give patient instructions): Abdominal Pain (ED), Gastrointestinal Bleeding (ED) Referrals: Derek Salcido MD [STAFF PHYSICIAN] - 1-2 days Time of Disposition: 18:36
[2020-07-05 17:43] LABS: Basophils # (A) 0.1 k/uL (0-0.2); Basophils % (A) 2 %; Eosinophils # (A) 0.1 k/uL (0-0.7); Eosinophils % (A) 2 %; HCT 47.4 % (39.0-53.0); HGB 16.8 gm/dL (13.0-17.5); Lymphocytes # (A) 1.4 k/uL (1.0-4.8); Lymphocytes % (A) 23 %; MCH 29.5 pg (25.0-35.0); MCHC 35.5 g/dL (31.0-37.0); MCV 83.1 fL (80.0-100.0); Mean Platelet Volume 6.7; Monocytes # (A) 0.5 k/uL (0-1.0); Monocytes % (A) 8 %; Neutrophils # (A) 3.7 k/uL (1.3-7.7); Neutrophils % (A) 62 %; Platelet Count 216 k/uL (150-450); RDW 11.9 % (11.5-15.5)
[2020-07-05 17:56] LABS: ALT 111 U/L (4-49); AST 53 U/L (17-59); African American GFR (CKD) >90 (>60 ml/min/1.73 sqM); Albumin 5.2 g/dL (3.5-5.0); Alkaline Phosphatase 82 U/L (38-126); Amylase 77 U/L (30-110); Anion Gap 11 mmol/L; Blood Urea Nitrogen 11 mg/dL (9-20); Calcium 10.2 mg/dL (8.4-10.2); Carbon Dioxide 22 mmol/L (22-30); Chloride 106 mmol/L (98-107); Glucose 99 mg/dL (74-99); Lipase 123 U/L (23-300); Non-African American GFR(CKD) >90 (>60 ml/min/1.73 sqM); Potassium 4.2 mmol/L (3.5-5.1); Sodium 139 mmol/L (137-145); Total Bilirubin 0.5 mg/dL (0.2-1.3); Total Protein 8.6 g/dL (6.3-8.2)
--- NOTE | 2020-07-05 18:32 | CT ---
EXAMINATION TYPE: CT abdomen pelvis w con DATE OF EXAM: 07/05/2020 COMPARISON: 08/08/2011 and 12/12/2019 HISTORY: Abdominal pain CT DLP: 818 mGycm Automated exposure control for dose reduction was used. CONTRAST: Performed with IV Contrast, patient injected with 100 mL of Isovue 300. Lung bases are clear. There is no pleural effusion. There is no pericardial effusion. Heart size is n ormal. There is some mild fatty infiltration of the liver. The bile ducts are not dilated. Gallbladder appea rs normal. Spleen is intact. There is no pancreatic mass. Stomach is intact. There is no adrenal mass. Kidneys show satisfactory contrast opacification. There is no hydronephrosi s. Ureters are not dilated. There is no retroperitoneal adenopathy. Bladder distends smoothly. There is no inguinal hernia. There is no mesenteric edema. There is no ascites or free air. There is no bowel obstruction. Termina l ileum appears normal. There is no evidence of thickened appendix. There is 2 x 1 cm umbilical herni a that contains fat. Lumbar vertebra have normal alignment. There is no compression fracture. Posterior elements are intac t. The hip joints are intact. IMPRESSION: Mild fatty infiltration of the liver. No acute abnormality in the abdomen pelvis. No adverse change c ompared to old exam.
[2020-07-05 19:11] VITALS: BP 137/80; PULSE 103; RESP 18; TEMP 98.8
== END 2020-07-05 19:12 | disposition home or self-care (01) ==
LOC: EC 16:28
DX: R10.31 Right lower quadrant pain (principal); K92.2 Gastrointestinal hemorrhage, unspecified; H40.9 Unspecified glaucoma; Z79.890 Hormone replacement therapy; Z88.7 Allergy status to serum and vaccine; Z88.2 Allergy status to sulfonamides; Z88.1 Allergy status to other antibiotic agents
CPT/HCPCS: 36415; 80053; 82150; 83690; 85025; 74177; 99284; 96360; Q9967

== ENCOUNTER 2022-11-27 15:14 | Observation (INO) | payer BC, OTHER ==
[2022-11-27] MEDS ORDERED: KETOROLAC 15 MG/ML 1 ML VIAL IVP STA (15:23)
--- NOTE | 2022-11-27 15:33 | ED ---
Chest Pain HPI - General Chief Complaint: Chest Pain Stated Complaint: chest pain Time Seen by Provider: 11/27/22 15:15 Source: patient, EMS, RN notes reviewed Mode of arrival: EMS Limitations: no limitations - History of Present Illness Initial Comments: 27-year-old male with a history of heart valve problems who states that in 2017 he has similar symptoms what happened today who was at work today when he started developing left and midsternal chest pain very severe sharp and crushing in nature. He was pale diaphoretic upon arrival of paramedics. He was given aspirin and nitro with some resolution of the pain went from 03/07-11/05. He did have shortness of breath with it. Patient does state he has a history of asthma but does not smoke cigarettes. He also states he is supposed to medication but cannot afford them at this time. No fevers chills nausea vomiting no cough or phlegm production. He does do lifting up to 40 pounds nothing on the ordinary today. No trauma reported. MD Complaint: chest pain - Related Data Home Medications Medication Instructions Recorded Confirmed Timolol 0.5% Ophth Soln [Timoptic 1 drop BOTH EYES BID 09/12/17 11/27/22 0.5% Ophth Soln] Allergies Allergy/AdvReac Type Severity Reaction Status Date / Time Pertussis Vaccines Allergy Unknown Verified 11/27/22 18:07 Childhood sulfamethoxazole Allergy Anaphylaxis Verified 11/27/22 18:07 [From Bactrim] trimethoprim [From Bactrim] Allergy Anaphylaxis Verified 11/27/22 18:07 Review of Systems ROS Statement: Those systems with pertinent positive or pertinent negative responses have been documented in the HPI. ROS Other: All systems not noted in ROS Statement are negative. EKG Findings - EKG Results: EKG: interpreted by ERMD (EKG interpreted by me sinus tachycardia rate of 103. Interval 136 QRS duration 89 daily since QTC 335/395 nonspecific T-wave configuration is compared with an EKG dated 12/12/17 showing similar configuration this is also compared with the 12-lead submitted by EMS today.) Past Medical History Additional Past Medical History / Comment(s): glaucoma, IBS History of Any Multi-Drug Resistant Organisms: None Reported Past Surgical History: Ear Surgery Additional Past Surgical History / Comment(s): cataract surgery, myringotomy, dental procedure Past Psychological History: No Psychological Hx Reported Smoking Status: Never smoker Past Alcohol Use History: None Reported Past Drug Use History: None Reported General Exam - General Exam Comments Initial Comments: This is a well-developed well-nourished awake alert oriented 4 male Limitations: no limitations General appearance: alert, anxious Head exam: Present: atraumatic, normocephalic, normal inspection Eye exam: Present: normal appearance, PERRL, EOMI. Absent: scleral icterus, conjunctival injection, periorbital swelling ENT exam: Present: normal exam, mucous membranes moist Neck exam: Present: normal inspection, full ROM, other (No surgery or bruits). Absent: tenderness, meningismus, lymphadenopathy Respiratory exam: Present: normal lung sounds bilaterally, chest wall tenderness (Tenderness palpation over left costal sternal margin and costal chondral margin no step-off no crepitation area the patient states this is similar to his pain that he had at work.). Absent: respiratory distress, wheezes, rales, rhonchi, stridor Cardiovascular Exam: Present: regular rate, normal rhythm, normal heart sounds. Absent: systolic murmur, diastolic murmur, rubs, gallop, clicks GI/Abdominal exam: Present: soft, normal bowel sounds. Absent: distended, tenderness, guarding, rebound, rigid, bruit, pulsatile mass Extremities exam: Present: normal inspection, full ROM, normal capillary refill. Absent: tenderness, pedal edema, joint swelling, calf tenderness Back exam: Present: normal inspection Neurological exam: Present: alert, oriented X3, CN II-XII intact Psychiatric exam: Present: normal affect, normal mood Skin exam: Present: warm, dry, intact, normal color. Absent: rash Course Vital Signs 11/27/22 11/27/22 11/27/22 15:14 16:24 17:10 Temperature 98.3 F Pulse Rate 97 107 H 87 Respiratory 19 18 18 Rate Blood Pressure 112/87 110/82 112/80 O2 Sat by Pulse 97 99 98 Oximetry Chest Pain MDM - MDM Imaging interpreted by me no acute process. Patient is feeling improved after medications that were rendered he did get improvement after nitroglycerin and aspirin given by paramedics also with some IV Toradol given by me. Due to the symptoms and the presentation patient be admitted for further inpatient evaluation and treatment I did discuss the case with Dr. Fox. Was pt. sent in by a medical professional or institution ([facility], [facility], urgent care, hospital, or senior living...) When possible be specific @ -No Did you speak to anyone other than the patient for history (EMS, parent, family, police, friend...)? What history was obtained from this source @ -Paramedics upon arrival Did you review nursing and triage notes (agree or disagree)? Why? @ -I reviewed and agree with nursing and triage notes Were old charts reviewed (outside hosp., previous admission, EMS record, old EKG, old radiological studies, urgent care reports/EKG's, senior living records)? Report findings @ -Previous admissions for EKG interpretation old charts were reviewed Differential Diagnosis (chest pain, altered mental status, abdominal pain women, abdominal pain men, vaginal bleeding, weakness, fever, dyspnea, syncope, headache, dizziness, GI bleed, back pain, seizure, CVA, palpatations, mental health, musculoskeletal)? @ -Chest pain EKG interpreted by me (3pts min.). @ -As above X-rays interpreted by me (1pt min.). @ -As above CT interpreted by me (1pt min.). @ -None done U/S interpreted by me (1pt. min.). @ -None done What testing was considered but not performed or refused? (CT, X-rays, U/S, labs)? Why? @ -None What meds were considered but not given or refused? Why? @ -None Did you discuss the management of the patient with other professionals (professionals i.e. [facility], [facility], lab, RT, psych nurse, administrator social welfare, crayon sawyer, teacher, probation officer, field nurse case manager)? Give summary @ -No Was smoking cessation discussed for >3mins.? @ -Not applicable Was critical care preformed (if so, how long)? @ -No Were there social determinants of health that impacted care today? How? (Homelessness, low income, unemployed, alcoholism, drug addiction, transportation, low edu. Level, literacy, decrease access to med. care, prison, rehab)? @ -No Was there de-escalation of care discussed even if they declined (Discuss DNR or withdrawal of care, Hospice)? DNR status @ -No What co-morbidities impacted this encounter? (DM, HTN, Smoking, COPD, CAD, Cancer, CVA, ARF, Chemo, Hep., AIDS, mental health diagnosis, sleep apnea, morbid obesity)? @ -None Was patient admitted / discharged? Hospital course, mention meds given and route, prescriptions, significant lab abnormalities, going to OR and other pertinent info. @ -hospital course patient was admitted for inpatient evaluation treatment of chest pain which did get improvement after nitroglycerin and aspirin Undiagnosed new problem with uncertain prognosis? @ -No Drug Therapy requiring intensive monitoring for toxicity (Heparin, Nitro, Insulin, Cardizem)? @ -No Were any procedures done? @ -No Diagnosis/symptom? @ -Chest pain Acute, or Chronic, or Acute on Chronic? @ -Acute Uncomplicated (without systemic symptoms) or Complicated (systemic symptoms)? @ -default Side effects of treatment? @ -No Exacerbation, Progression, or Severe Exacerbation? @ -No Poses a threat to life or bodily function? How? (Chest pain, [place], [place], pneumonia, PE, COPD, DKA, ARF, appy, cholecystitis, CVA, Diverticulitis, Homicidal, Suicidal, threat to staff... and all critical care pts) @ -No Disposition Clinical Impression: Chest pain, Chest wall syndrome Disposition: ADMITTED IP TO THIS HOSP Condition: Stable Referrals: Jose Guadalupe Dolan MD [Primary Care Provider] - 1-2 days Decision Date: 11/27/22 Decision Time: 18:47
--- NOTE | 2022-11-27 15:39 | XR ---
EXAMINATION TYPE: XR chest 2V DATE OF EXAM: 11/27/2022 3:34 PM COMPARISON: Chest radiographs from 12/12/2017 TECHNIQUE: XR chest 2V Frontal and lateral views of the chest. CLINICAL INDICATION:Male, 27 years old with history of Chest Pain; FINDINGS: Lungs/Pleura: There is no evidence of pleural effusion, focal consolidation, or pneumothorax. Pulmonary vascularity: Unremarkable. Heart/mediastinum: Cardiomediastinal silhouette is unremarkable. Musculoskeletal: No acute osseous pathology. IMPRESSION: No acute cardiopulmonary disease/process.
[2022-11-27 15:51] LABS: Basophils % (A) 0 %; Eosinophils % (A) 0 %; HCT 41.8 % (39.0-53.0); HGB 14.6 gm/dL (13.0-17.5); Lymphocytes # (A) 1.2 k/uL (1.0-4.8); Lymphocytes % (A) 20 %; MCH 28.4 pg (25.0-35.0); MCV 81.1 fL (80.0-100.0); Monocytes # (A) 0.3 k/uL (0-1.0); Monocytes % (A) 5 %; Neutrophils # (A) 4.4 k/uL (1.3-7.7); Neutrophils % (A) 73 %; Platelet Count 239 k/uL (150-450); RBC 5.15 m/uL (4.30-5.90); RDW 12.5 % (11.5-15.5); WBC 6.1 k/uL (3.8-10.6)
[2022-11-27 15:56] LABS: INR 1.1 (<1.2); Partial Thromboplastin Time 23.7 sec (22.0-30.0); Prothrombin Time 11.1 sec (9.0-12.0)
[2022-11-27 16:02] LABS: ALT 41 U/L (4-49); AST 30 U/L (17-59); African American GFR (CKD) >90 (>60 ml/min/1.73 sqM); Albumin 4.8 g/dL (3.5-5.0); Alkaline Phosphatase 67 U/L (38-126); Anion Gap 13 mmol/L; Blood Urea Nitrogen 15 mg/dL (9-20); Calcium 9.3 mg/dL (8.4-10.2); Carbon Dioxide 18 mmol/L (22-30); Chloride 107 mmol/L (98-107); Glucose 95 mg/dL (74-99); Lipase 77 U/L (23-300); Magnesium 1.8 mg/dL (1.6-2.3); Non-African American GFR(CKD) >90 (>60 ml/min/1.73 sqM); Sodium 138 mmol/L (137-145); Total Bilirubin 0.5 mg/dL (0.2-1.3); Total Protein 7.7 g/dL (6.3-8.2)
[2022-11-27] MEDS ORDERED: NITROGLYCERIN SL TABS 0.4 MG TAB SUBLINGUAL PRN (18:47)
[2022-11-27] MEDS: TIMOLOL 0.5% OPHTH DROPS 5 ML BTL BOTH EYES SCH (22:02)
[2022-11-27 22:53] LABS: Amphetamine Screen,Urine Not Detected (NotDetected); Barbiturate Screen,Urine Not Detected (NotDetected); Benzodiazepines Screen,Urine Not Detected (NotDetected); Cocaine Screen,Urine Not Detected (NotDetected); Methadone Screen, Urine Not Detected (NotDetected); Opiate Screen,Urine Not Detected (NotDetected); Oxycodone Screen, Urine Not Detected (NotDetected); Phencyclidine Screen,Urine Not Detected (NotDetected); Tricyclic Antidepressant,Urine Not Detected (NotDetected); Urn Cannabinoid Scrn Not Detected (NotDetected)
--- NOTE | 2022-11-28 04:19 | P.HPIM ---
History of Present Illness H&P Date: 11/27/22 Chief Complaint: chest pain 27 year old male with glaucoma patient coming in for evaluation of chest pain . he works at [employer], non physical , while at work today , he started experiencing sudden onset central chest pain non radiating , associated with numbness of his feet and hands, profuse sweating, and palpitations, he was looking pale and his coworkers decided to call EMS. patient otherwise denies any episodes of exercise intolerance in the past. however, about 6 years ago , he had a similar episode and was told that he has tachycardia . he denies any recent hospital stay or travel , no history of blood clots, no fever, chills, no URI symptoms , no abd pain , no nausea or vomiting, no changes in bowel or urinary habits. Review of Systems Pertinent positives as noted in HPI. All other systems were reviewed and are negative Past Medical History Additional Past Medical History / Comment(s): glaucoma, IBS History of Any Multi-Drug Resistant Organisms: None Reported Past Surgical History: Ear Surgery Additional Past Surgical History / Comment(s): cataract surgery, myringotomy, dental procedure Past Psychological History: No Psychological Hx Reported Smoking Status: Never smoker Past Alcohol Use History: None Reported Past Drug Use History: None Reported Medications and Allergies Home Medications Medication Instructions Recorded Confirmed Type Timolol 0.5% Ophth Soln [Timoptic 1 drop BOTH EYES BID 09/12/17 11/27/22 History 0.5% Ophth Soln] Allergies Allergy/AdvReac Type Severity Reaction Status Date / Time Pertussis Vaccines Allergy Unknown Verified 11/27/22 18:07 Childhood sulfamethoxazole Allergy Anaphylaxis Verified 11/27/22 18:07 [From Bactrim] trimethoprim [From Bactrim] Allergy Anaphylaxis Verified 11/27/22 18:07 Physical Exam Vitals: Vital Signs Temp Pulse Pulse Resp BP BP Pulse Ox 11/27/22 21:47 97.6 F 74 118/79 96 11/27/22 21:00 89 16 119/78 97 11/27/22 17:10 87 18 112/80 98 11/27/22 16:24 107 H 18 110/82 99 11/27/22 15:14 98.3 F 97 19 112/87 97 Intake and Output 11/27/22 11/27/22 11/27/22 06:59 14:59 22:59 Other: Weight 66.224 kg Constitutional: No acute distress, conversant, pleasant Eyes: Anicteric sclerae, moist conjunctiva, Pupils equal round reactive to light ENMT: NC/AT Oropharynx clear, no erythema, or exudates Neck: Supple, no masses, or JVD No carotid bruits No thyromegaly Lungs: Clear to auscultation Clear to percussion Normal respiratory effort, no accessory muscle use Cardiovascular: Heart regular in rate and rhythm, No murmurs, gallops, or rubs No peripheral edema Abdominal: Soft No tenderness to deep palpation no guarding, rebound or rigidity Abdomen moving with respiration Normoactive bowel sounds No hepatomegaly, No splenomegaly No palpable mass Skin: Normal temperature, tone, texture, turgor Extremities: No digital cyanosis No clubbing Pedal pulses intact and symmetrical Radial pulses intact and symmetrical No calf tenderness Psychiatric: Alert and oriented to person, place and time Appropriate affect Neuro Muscles Strength 5/5 in all 4 extremities Sensation to light touch grossly present throughout Cranial nerves II-XII grossly intact Lymphatics: no palpable cervical or supraclavicular lymph nodes Results CBC & Chem 7: 11/27/22 15:25 11/27/22 15:25 Labs: Abnormal Lab Results - Last 24 Hours (Table) 11/27/22 Range/Units 15:25 Carbon Dioxide 18 L (22-30) mmol/L Thrombosis Risk Factor Assmnt - Choose All That Apply Each Factor Represents 1 point: Age 41-60 years Other Risk Factors: No Other congenital or acquired thrombophilia - If yes, enter type in comment: No Thrombosis Risk Factor Assessment Total Risk Factor Score: 1 Thrombosis Risk Factor Assessment Level: Low Risk Assessment and Plan Assessment: 27 year old male with glaucoma and tachycardia presented with sudden onset chest pain , I discussed the case with ED doc, and I accepted the admission for ca rdiac workup with anticipated length ofstay < 2 midnights atypical chest pain Aspirin 325 daily po EKG no acute ST changes troponin negative , continue to trend cardiology consult cardiac monitoring monitor vital signs check lipid panel in AM check TSH supportive care echocardiogram in AM [place] continue eye drops full code DVT PPX lovenox sc 40 mg daily
[2022-11-28] MEDS ORDERED: ASPIRIN 81 MG PO SCH (09:00)
[2022-11-28] MEDS ORDERED: ENOXAPARIN 40 MG/0.4 ML SYRINGE SQ SCH (09:00)
[2022-11-28] MEDS ORDERED: ASPIRIN 325 MG TAB PO SCH (09:00)
[2022-11-28 09:09] VITALS: BP 103/66; PULSE 80; TEMP 97.8
--- NOTE | 2022-11-28 09:13 | P.CRDCN ---
History of Present Illness Consult date: 11/28/22 History of present illness: History of Present Illness: The patient is a 27-year-old male with no prior cardiac history who while at work yesterday felt dyspneic, had chest discomfort and felt shaky. The discomfort was not activity related. Because of his symptoms he came into the emergency room and subsequently admitted. He is average in his exercise tolerance, has no exertional chest discomfort or dyspnea on exertion. He has no PND, orthopnea or peripheral edema. He was admitted to the hospital in 2017 with symptoms of palpitations and he was told that he has tachycardia but had no further symptoms since. He has not been evaluated by cardiology since his event. He has no history of hypertension, hyperlipidemia or diabetes, he is a nonsmoker. On presentation he had no acute ST segment changes and his troponin were normal. He is in sinus mechanism and he is pain-free at this time. He denies any significant alcohol or caffeine intake Medications: Timolol eyedrop Review of Systems: Respiratory: No history of asthma, bronchitis or recent cough. GI: No nausea or vomiting . No history of peptic ulcer disease. No recent GI bleed. : No hematuria or dysuria. Nervous System: No stroke or seizure. Physical Examination: 27-year-old male, alert oriented no apparent distress ,Blood pressure 103/60, Heart rate 80 Head: Normocephalic. Eyes: Sclerae nonicteric. Neck: Good carotid upstroke, no bruit, no jugular venous distention. Lungs: Clear to auscultation. Heart: Regular rate and rhythm, S1-S2, no S3, no rub. No murmur. Abdomen: Soft nontender, positive bowel sounds no organomegaly. Extremities: No edema, intact distal pulses. Labs: WBC 6.1, hemoglobin 14.6, BUN 15, creatinine 0.76. Troponin less than 0.012. Chest x-ray with no acute infiltrate EKG: Sinus mechanism rate of [address]-T wave changes Impression: 1. Chest discomfort, probably noncardiac 2. Prior history of tachycardia, no evidence of arrhythmia at this time Plan: 1. Increase physical activity 2. Obtain a dobutamine stress echocardiogram 3. Obtain an echocardiogram with Doppler 4. If there is no evidence of stress-induced ischemia then no further cardiac workup will be needed 5. Thank you for this consult we will follow with you Past Medical History Additional Past Medical History / Comment(s): glaucoma, IBS History of Any Multi-Drug Resistant Organisms: None Reported Past Surgical History: Ear Surgery Additional Past Surgical History / Comment(s): cataract surgery, myringotomy, dental procedure Past Psychological History: No Psychological Hx Reported Smoking Status: Never smoker Past Alcohol Use History: None Reported Past Drug Use History: None Reported Medications and Allergies Home Medications Medication Instructions Recorded Confirmed Type Timolol 0.5% Ophth Soln [Timoptic 1 drop BOTH EYES BID 09/12/17 11/27/22 History 0.5% Ophth Soln] Allergies Allergy/AdvReac Type Severity Reaction Status Date / Time Pertussis Vaccines Allergy Unknown Verified 11/27/22 18:07 Childhood sulfamethoxazole Allergy Anaphylaxis Verified 11/27/22 18:07 [From Bactrim] trimethoprim [From Bactrim] Allergy Anaphylaxis Verified 11/27/22 18:07 Physical Exam Vitals: Vital Signs Temp Pulse Pulse Resp BP BP Pulse Ox 11/28/22 07:53 97 11/28/22 02:43 97.7 F 87 16 109/73 97 11/27/22 21:47 97.6 F 74 118/79 96 11/27/22 21:00 89 16 119/78 97 11/27/22 17:10 87 18 112/80 98 11/27/22 16:24 107 H 18 110/82 99 11/27/22 15:14 98.3 F 97 19 112/87 97 Intake and Output 11/27/22 11/28/22 11/28/22 22:59 06:59 14:59 Other: # Voids 1 1 Weight 66.224 kg Results 11/27/22 15:25 11/27/22 15:25 Cardiac Enzymes 11/27/22 11/27/22 11/27/22 Range/Units 15:25 15:25 20:04 AST 30 (17-59) U/L Troponin I <0.012 <0.012 (0.000-0.034) ng/mL 11/27/22 Range/Units 23:50 AST (17-59) U/L Troponin I <0.012 (0.000-0.034) ng/mL Coagulation 11/27/22 Range/Units 15:25 PT 11.1 (9.0-12.0) sec APTT 23.7 (22.0-30.0) sec CBC 11/27/22 Range/Units 15:25 WBC 6.1 (3.8-10.6) k/uL RBC 5.15 (4.30-5.90) m/uL Hgb 14.6 (13.0-17.5) gm/dL Hct 41.8 (39.0-53.0) % Plt Count 239 (150-450) k/uL Comprehensive Metabolic Panel 11/27/22 Range/Units 15:25 Sodium 138 (137-145) mmol/L Potassium 4.0 (3.5-5.1) mmol/L Chloride 107 (98-107) mmol/L Carbon Dioxide 18 L (22-30) mmol/L BUN 15 (9-20) mg/dL Creatinine 0.76 (0.66-1.25) mg/dL Glucose 95 (74-99) mg/dL Calcium 9.3 (8.4-10.2) mg/dL AST 30 (17-59) U/L ALT 41 (4-49) U/L Alkaline Phosphatase 67 (38-126) U/L Total Protein 7.7 (6.3-8.2) g/dL Albumin 4.8 (3.5-5.0) g/dL Current Medications Generic Name Dose Route Start Last Admin Trade Name Freq PRN Reason Stop Dose Admin Aspirin 81 mg 11/28/22 09:00 Aspirin 81 Mg PO DAILY [facility] Enoxaparin Sodium 40 mg 11/28/22 09:00 Enoxaparin 40 Mg/0.4 Ml Syringe SQ DAILY [facility] Nitroglycerin 0.4 mg 11/27/22 18:47 Nitroglycerin Sl Tabs 0.4 Mg Tab SUBLINGUAL Q5M PRN Chest Pain Timolol Maleate 1 drops 11/27/22 21:00 11/27/22 22:02 Timolol 0.5% Ophth Drops 5 Ml Btl BOTH EYES 1 drops BID [facility] Administration Intake and Output 11/27/22 11/28/22 11/28/22 22:59 06:59 14:59 Other: # Voids 1 1 Weight 66.224 kg 11/27/22 15:25 11/27/22 15:25
[2022-11-28] MEDS: TIMOLOL 0.5% OPHTH DROPS 5 ML BTL BOTH EYES SCH (10:24)
--- NOTE | 2022-11-28 10:55 | CA ---
Stress Echo Report Dallas Kendall Age: 27 Gender: M : 1995 Exam Date: 11/28/2022 09:29 Exam Location: [facility] Stress Ht (in): 65 Wt (lb): 146 Ordering Physician: Sari May MD ([id number]) Referring Physician: [place], Service Establishment Attendant: MATTHIEU Technologist Procedure CPT: Indication: Chest Pain ICD-9 Codes: Rhythm: Patient History: Cardiac Medications: SEE CHART Medications in past 24 hours: Contrast: Stress Results Protocol: Bryant Total dose(mL): Exercise Duration (min:sec): 10:[address] Depression (mm): 0 Angina Score: 0 Bryson Score: 10 METS: 11.5 Resting HR: 77 Resting BP: 104 / 51 Peak HR: 183 Peak BP: 149 / 53 Max Predicted HR: 192 95 % Max Predicted HR Target HR: 163 Double Product: [id number] Stress Summary: The patient's target heart rate was achieved BP Response: Normal Reason for Termination: Reached target heart rate or work-load Cardiac Symptoms: NO SYMPTOMS ECG Analysis Resting ECG: Normal sinus rhythm, normal ECG Stress ECG: No abnormal ST/T wave changes with exercise Arrhythmia: None Echo Analysis Resting Echo: Normal resting echocardiogram. Peak Echo Analysis: Normal wall motion augmentation with no hypokinesis or dyskinesis MEASUREMENTS (Male/Female) Normal Values CONCLUSIONS 1. Normal electrocardiographic response to exercise with good exercise tolerance 2. Normal stress echocardiogram with no evidence of stress- induced ischemiaPatient falls into low-risk group (DTS >= +5). This associates the patient with an annual CV mortality <= 0.5%. Dr. Sari May MD (Electronically Signed) Final Date: 28 Nov 2022 10:54
[2022-11-28 11:36] LABS: Chol/HDL Ratio 4.33 Ratio; LDL Cholesterol,Calculated 126.1 mg/dL (0.0-131.0)
--- NOTE | 2022-11-28 11:52 | P.DS ---
Providers Date of admission: 11/27/22 18:47 Expected date of discharge: 11/28/22 Attending physician: Jennifer Stewart DO Consults: 11/27/22 18:47 Consult Physician Urgent Consulting Provider: Sari May Consult Reason/Comments: chest pain Do you want consulting provider notified?: Yes Primary care physician: Jose Guadalupe Dolan MD Hospital Course: Discharge Diagnosis: Atypical chest pain Hospital Course: 27-year-old male with history of possible hypothyroidism, presented with chest pain. In the ED, vital signs were within normal limits, initial EKG showed s inus tachycardia, chest x-ray showed no acute process. Cardiology was consulted. Troponins were negative. Stress echo was negative for any ischemia. TSH was normal. Patient will follow-up with PCP. Patient seen and examined at bedside. Vital signs reviewed and stable. General: nontoxic, no distress, appears at stated age Derm: warm, dry Head: atraumatic, normocephalic, symmetric Eyes: EOMI, no lid lag, anicteric sclera Mouth: no lip lesion, mucus membranes moist Cardiovascular: S1S2 reg, no murmur Lungs: CTA bilateral, no rhonchi, no rales , no accessory muscle use Abdominal: soft, nontender to palpation, no guarding, no appreciable organomegaly Ext: no gross muscle atrophy, no edema, no contractures Neuro: CN II-XI grossly intact, no focal neuro deficits Psych: Alert, oriented, appropriate affect A total of 37 minutes of time were spent preparing this complex discharge summary. Patient was discharged on 11/28/22 at 11:49. Patient Condition at Discharge: Stable Plan - Discharge Summary New Discharge Prescriptions: Continue Timolol 0.5% Ophth Soln [Timoptic 0.5% Ophth Soln] 1 drop BOTH EYES BID Discharge Medication List Timolol 0.5% Ophth Soln [Timoptic 0.5% Ophth Soln] 1 drop BOTH EYES BID 09/12/17 [History] Follow up Appointment(s)/Referral(s): Jose Guadalupe Dolan MD [Primary Care Provider] - 1-2 days Patient Instructions/Handouts: Noncardiac Chest Pain (DC) Activity/Diet/Wound Care/Special Instructions: Please see your PCP as soon as possible. Thyroid function was normal in the hospital. Discharge Disposition: HOME SELF-CARE
--- NOTE | 2022-11-28 12:17 | CA ---
Transthoracic Echo Report Name: Dallas Kendall Age: 27 Gender: M : 1995 Exam Date: 11/28/2022 09:53 Exam Location: [facility] Ht (in): 65 Wt (lb): 146 Ordering Physician: Sari May MD ([id number]) Attending/Referring Phys: Hris Specialist Radha Lopez RDCS Procedure CPT: Indications: CP Cardiac Hx: Technical Quality: Good Contrast 1: Total Dose (mL): Contrast 2: Total Dose (mL): MEASUREMENTS (Male / Female) Normal Values 2D ECHO LV Diastolic Diameter PLAX 3.2 cm 4.2 - 5.9 / 3.9 - 5.3 cm LV Systolic Diameter PLAX 2.1 cm IVS Diastolic Thickness 1.1 cm 0.6 - 1.0 / 0.6 - 0.9 cm LVPW Diastolic Thickness 1.0 cm 0.6 - 1.0 / 0.6 - 0.9 cm LV Relative Wall Thickness 0.6 RV Internal Dim ED PLAX 2.5 cm LA Systolic Diameter LX 2.8 cm 3.0 - 4.0 / 2.7 - 3.8 cm M-MODE Aortic Root Diameter MM 2.5 cm MV E Point Septal Separation 0.5 cm AV Cusp Separation MM 2.0 cm DOPPLER AV Peak Velocity 131.8 cm/s AV Peak Gradient 7.0 mmHg MV Area PHT 5.2 cm??? Mitral E Point Velocity 98.2 cm/s Mitral A Point Velocity 84.2 cm/s Mitral E to A Ratio 1.2 MV Deceleration Time 146.2 ms MV E' Velocity 10.6 cm/s Mitral E to MV E' Ratio 9.3 FINDINGS Left Ventricle Left ventricular ejection fraction is estimated at 55-60 %. Left ventricular wall thickness normal.left ventricular cavity size normal. Right Ventricle Normal right ventricular size and function. No TR unable to estimate the right ventricular systolic pressure. Right Atrium Normal right atrial size. Left Atrium Normal left atrial size. Mitral Valve Structurally normal mitral valve. No mitral stenosis, or prolapse. Trace regurgitation Aortic Valve Trileaflet aortic valve. No aortic valve stenosis or regurgitation. Tricuspid Valve Structurally normal tricuspid valve. No tricuspid stenosis, or prolapse. Pulmonic Valve Structurally normal pulmonic valve. No pulmonic regurgitation. Pericardium Normal pericardium. No pericardial effusion. Aorta Normal size aortic root and proximal ascending aorta. CONCLUSIONS 1. Normal left ventricle size and systolic function 2. Trace mitral regurgitation Previewed by: Dr. Sari May MD (Electronically Signed) Final Date: 28 Nov 2022 12:16
[2022-11-28 12:51] VITALS: RESP 18
== END 2022-11-28 13:37 | disposition home or self-care (01) ==
LOC: SUPCPDRO 15:14 → EC 15:14 → 6NMEDSUR 18:47
PROVIDERS: ADMIT Internal Medicine; ATTEND Internal Medicine
DX: R07.89 Other chest pain (principal); K58.9 Irritable bowel syndrome, unspecified; Z79.82 Long term (current) use of aspirin; Z88.2 Allergy status to sulfonamides
CPT/HCPCS: 96374; 99285; 36415; 94760; 93005; 93306; 93351; 85379; 83880; 80061; 80053; 84443; 83690; 83735; 84484; 85025; 85610; 85730; 80306; 71046; G0378 ×2; J1885

== ENCOUNTER 2024-10-12 06:49 | Emergency (ER) | payer OTHER ==
[2024-10-12 07:39] LABS: Influenza A Not Detected (Not Detectd); Influenza B Not Detected (Not Detectd); RSV Not Detected (Not Detectd)
--- NOTE | 2024-10-12 07:48 | ED ---
General Adult HPI - General Chief complaint: Upper Respiratory Infection Stated complaint: SOB Time Seen by Provider: 10/12/24 07:18 Source: patient Mode of arrival: ambulatory Limitations: no limitations - History of Present Illness Initial comments: Dictation was produced using [employer] dictation software. please excuse any grammatical, word or spelling errors. Chief Complaint: 29-year-old male with history of chest pain presents to the ER for cough and chest pain History of Present Illness: Patient 29-year-old male he is following up with cardiology for chest pain. Patient recently had a stress test 1 week ago. He has not had the results for it yet. The last 1 to 2 days he has been having shortness of breath cough. She does report low degree constitutional symptoms. Patient states that he has sharp pain that is intermittent. Denies any associated diaphoresis or nausea. Denies any obvious sick contacts however he does deal with people through his work at the [employer]. Denies any sore throat nasal congestion. Cough is dry nonproductive of sputum The ROS documented in this emergency department record has been reviewed and confirmed by me. Those systems with pertinent positive or negative responses have been documented in the HPI. All other systems are other negative and/or noncontributory. - Related Data Home Medications Medication Instructions Recorded Confirmed Timolol 0.5% Ophth Soln [Timoptic 1 drop BOTH EYES BID 09/12/17 11/27/22 0.5% Ophth Soln] Allergies Allergy/AdvReac Type Severity Reaction Status Date / Time Pertussis Vaccines Allergy Unknown Verified 10/12/24 06:53 Childhood sulfamethoxazole Allergy Anaphylaxis Verified 10/12/24 06:53 [From Bactrim] trimethoprim [From Bactrim] Allergy Anaphylaxis Verified 10/12/24 06:53 Review of Systems ROS Statement: Those systems with pertinent positive or pertinent negative responses have been documented in the HPI. ROS Other: All systems not noted in ROS Statement are negative. Past Medical History Additional Past Medical History / Comment(s): glaucoma, IBS History of Any Multi-Drug Resistant Organisms: None Reported Past Surgical History: Ear Surgery Additional Past Surgical History / Comment(s): cataract surgery, myringotomy, dental procedure Past Psychological History: No Psychological Hx Reported Smoking Status: Never smoker Past Alcohol Use History: None Reported Past Drug Use History: None Reported General Exam - General Exam Comments Initial Comments: PHYSICAL EXAM: General Impression: Alert and oriented x3, not in acute distress HEENT: Normocephalic atraumatic, extra-ocular movements intact, pupils equal and reactive to light bilaterally, mucous membranes moist. Cardiovascular: Heart regular rate and rhythm Chest: Able to complete full sentences, no retractions, no tachypnea Abdomen: abdomen soft, non-tender, non-distended, no organomegaly Musculoskeletal: Pulses present and equal in all extremities, no peripheral edema Motor: no focal deficits noted Neurological: CN II-XII grossly intact, no focal motor or sensory deficits noted Skin: Intact with no visualized rashes Psych: Normal affect and mood Limitations: no limitations Course Vital Signs 10/12/24 10/12/24 10/12/24 06:54 07:51 08:33 Temperature 98.2 F 98.1 F Pulse Rate 119 H 112 H Respiratory 18 22 20 Rate Blood Pressure 126/88 118/81 O2 Sat by Pulse 97 98 Oximetry 10/12/24 09:42 Temperature Pulse Rate 113 H Respiratory 22 Rate Blood Pressure 122/77 O2 Sat by Pulse 98 Oximetry Medical Decision Making - Medical Decision Making My EKG interpretation: Ventricular rate 110, sinus tachycardia,. 160, QRS 81, QTc 365. No ID prolongation, no QTC prolongation, no ST or T-wave changes noted. Overall, this EKG is unremarkable Was pt. sent in by a medical professional or institution (AMANDA Duff, [employer] BURNER, urgent care, hospital, or assisted...) When possible be specific @ -No Did you speak to anyone other than the patient for history (EMS, parent, family, police, friend...)? What history was obtained from this source @ -No Did you review nursing and triage notes (agree or disagree)? Why? @ -I reviewed and agree with nursing and triage notes Were old charts reviewed (outside hosp., previous admission, EMS record, old EKG, old radiological studies, urgent care reports/EKG's, assisted records)? Report findings @ -No old charts were reviewed Differential Diagnosis (chest pain, altered mental status, abdominal pain women, abdominal pain men, vaginal bleeding, musculoskeletal, weakness, fever, dyspnea, syncope, headache, dizziness, GI bleed, back pain, seizure, CVA, palpatations, mental health)? @ -Differential Dyspnea: Coronary syndrome, arrhythmia, tamponade, asthma, COPD, pulmonary embolism, pneumonia, pneumothorax, pulmonary effusion, anaphylaxis, diabetic ketoacidosis, flailed chest, pulmonary contusion, diaphragmatic rupture, anemia, neuromuscular, this is not meant to be an all-inclusive list. EKG interpreted by me (3pts min.). @ -See above X-rays interpreted by me (1pt min.). @ -Chest x-ray shows no acute processes. CT interpreted by me (1pt min.). @ -None done U/S interpreted by me (1pt. min.). @ -None done What testing was considered but not performed or refused? (CT, X-rays, U/S, labs)? Why? @ -None What meds were considered but not given or refused? Why? @ -None Was smoking cessation discussed for >3mins.? @ -No Were there social determinants of health that impacted care today? How? (Homelessness, low income, unemployed, alcoholism, drug addiction, transportation, low edu. Level, literacy, decrease access to med. care, long term, rehab)? @ -No Was there de-escalation of care discussed even if they declined (Discuss DNR or withdrawal of care, Hospice)? DNR status @ -No What co-morbidities impacted this encounter? (DM, HTN, Smoking, COPD, CAD, Cancer, CVA, ARF, Chemo, Hep., AIDS, mental health diagnosis, sleep apnea, morbid obesity)? @ -None Was patient admitted / discharged? Hospital course, mention meds given and route, prescriptions, significant lab abnormalities, going to OR and other pertinent info. @ -29-year-old male presents to the emergency department with cough and shortness of breath. Does report some mild constitutional symptoms. Vital signs upon arrival shows mild tachycardia. Rest of vital signs within acceptable limits. Lungs clear to auscultation bilaterally. Laboratory evaluation is unremarkable. Viral testing is negative. Patient reevaluated bedside 10:04 AM found to be in stable condition. Patient be discharged advised follow-up with primary care doctor. Did you discuss the management of the patient with other professionals (professionals i.e. , PA, [employer] BURNER, lab, RT, psych nurse, social services counselor, smudger, teacher, emergency response officer, case repairer)? Give summary @ -No Was critical care preformed (if so, how long)? @ -No Undiagnosed new problem with uncertain prognosis? @ -No Drug Therapy requiring intensive monitoring for toxicity (Heparin, Nitro, Insulin, Cardizem)? @ -No Were any procedures done? @ -No Diagnosis/symptom? Acute, or Chronic, or Acute on Chronic? Uncomplicated (without systemic symptoms) or Complicated (systemic symptoms)? @ -Viral URI Side effects of treatment? @ -No Exacerbation, Progression, or Severe Exacerbation? @ -No Poses a threat to life or bodily function? How? (Chest pain, USA, MS, pneumonia, PE, COPD, DKA, ARF, appy, cholecystitis, CVA, Diverticulitis, Homicidal, Suicidal, threat to staff... and all critical care pts) @ -No - Lab Data Result diagrams: 10/12/24 07:49 10/12/24 07:49 Lab Results 10/12/24 10/12/24 10/12/24 Range/Units 06:58 07:49 07:49 WBC 11.2 H (3.8-10.6) k/uL RBC 5.39 (4.30-5.90) m/uL Hgb 15.5 (13.0-17.5) gm/dL Hct 46.4 (39.0-53.0) % MCV 86.0 (80.0-100.0) fL MCH 28.8 (25.0-35.0) pg MCHC 33.5 (31.0-37.0) g/dL RDW 12.7 (11.5-15.5) % Plt Count 213 (150-450) k/uL MPV 7.4 Neutrophils % 84 % Lymphocytes % 10 % Monocytes % 5 % Eosinophils % 1 % Basophils % 0 % Neutrophils # 9.4 H (1.3-7.7) k/uL Lymphocytes # 1.1 (1.0-4.8) k/uL Monocytes # 0.5 (0-1.0) k/uL Eosinophils # 0.1 (0-0.7) k/uL Basophils # 0.0 (0-0.2) k/uL Sodium 138 (137-145) mmol/L Potassium 4.1 (3.5-5.1) mmol/L Chloride 105 (98-107) mmol/L Carbon Dioxide 22 (22-30) mmol/L Anion Gap 11 mmol/L BUN 13 (9-20) mg/dL Creatinine 0.78 (0.66-1.25) mg/dL Est GFR (CKD-EPI)AfAm >90 (>60 ml/min/1.73 sqM) Est GFR (CKD-EPI)NonAf >90 (>60 ml/min/1.73 sqM) Glucose 97 (74-99) mg/dL Calcium 9.6 (8.4-10.2) mg/dL Troponin I (0.000-0.034) ng/mL Influenza Type A (PCR) Not Detected (Not Detectd) Influenza Type B (PCR) Not Detected (Not Detectd) RSV (PCR) Not Detected (Not Detectd) SARS-CoV-2 (PCR) Not Detected (Not Detectd) 10/12/24 Range/Units 07:49 WBC (3.8-10.6) k/uL RBC (4.30-5.90) m/uL Hgb (13.0-17.5) gm/dL Hct (39.0-53.0) % MCV (80.0-100.0) fL MCH (25.0-35.0) pg MCHC (31.0-37.0) g/dL RDW (11.5-15.5) % Plt Count (150-450) k/uL MPV Neutrophils % % Lymphocytes % % Monocytes % % Eosinophils % % Basophils % % Neutrophils # (1.3-7.7) k/uL Lymphocytes # (1.0-4.8) k/uL Monocytes # (0-1.0) k/uL Eosinophils # (0-0.7) k/uL Basophils # (0-0.2) k/uL Sodium (137-145) mmol/L Potassium (3.5-5.1) mmol/L Chloride (98-107) mmol/L Carbon Dioxide (22-30) mmol/L Anion Gap mmol/L BUN (9-20) mg/dL Creatinine (0.66-1.25) mg/dL Est GFR (CKD-EPI)AfAm (>60 ml/min/1.73 sqM) Est GFR (CKD-EPI)NonAf (>60 ml/min/1.73 sqM) Glucose (74-99) mg/dL Calcium (8.4-10.2) mg/dL Troponin I <0.012 (0.000-0.034) ng/mL Influenza Type A (PCR) (Not Detectd) Influenza Type B (PCR) (Not Detectd) RSV (PCR) (Not Detectd) SARS-CoV-2 (PCR) (Not Detectd) Disposition Clinical Impression: Common cold Disposition: HOME SELF-CARE Condition: Fair Instructions (If sedation given, give patient instructions): Upper Respiratory Infection (ED) Is patient prescribed a controlled substance at d/c from ED?: No Referrals: Denver Asher MD [Primary Care Provider] - 1-2 days Time of Disposition: 10:04
[2024-10-12 08:11] LABS: Basophils % (A) 0 %; Eosinophils # (A) 0.1 k/uL (0-0.7); Eosinophils % (A) 1 %; HCT 46.4 % (39.0-53.0); HGB 15.5 gm/dL (13.0-17.5); Lymphocytes # (A) 1.1 k/uL (1.0-4.8); Lymphocytes % (A) 10 %; MCH 28.8 pg (25.0-35.0); MCHC 33.5 g/dL (31.0-37.0); Mean Platelet Volume 7.4; Monocytes # (A) 0.5 k/uL (0-1.0); Monocytes % (A) 5 %; Neutrophils # (A) 9.4 k/uL (1.3-7.7); Neutrophils % (A) 84 %; Platelet Count 213 k/uL (150-450); RBC 5.39 m/uL (4.30-5.90); RDW 12.7 % (11.5-15.5); WBC 11.2 k/uL (3.8-10.6)
[2024-10-12 08:27] LABS: African American GFR (CKD) >90 (>60 ml/min/1.73 sqM); Anion Gap 11 mmol/L; Blood Urea Nitrogen 13 mg/dL (9-20); Calcium 9.6 mg/dL (8.4-10.2); Carbon Dioxide 22 mmol/L (22-30); Chloride 105 mmol/L (98-107); Glucose 97 mg/dL (74-99); Non-African American GFR(CKD) >90 (>60 ml/min/1.73 sqM); Potassium 4.1 mmol/L (3.5-5.1); Sodium 138 mmol/L (137-145)
--- NOTE | 2024-10-12 09:40 | XR ---
EXAMINATION TYPE: XR chest 2V DATE OF EXAM: 10/12/2024 8:27 AM COMPARISON: 11/27/2022 CLINICAL INDICATION: Male, 29 years old with history of chest pain, TECHNIQUE: Frontal and lateral views of the chest are obtained. FINDINGS: There is no focal air space opacity, pleural effusion, or pneumothorax seen. The cardiac silhouette size is within normal limits. The osseous structures are intact. IMPRESSION: No acute cardiopulmonary process. [facility], , 10/12/2024 9:38 AM
[2024-10-12 10:34] VITALS: BP 120/81; PULSE 112; RESP 20; TEMP 98
== END 2024-10-12 10:33 | disposition home or self-care (01) ==
LOC: EC 06:49
DX: J00 Acute nasopharyngitis [common cold] (principal); Z88.2 Allergy status to sulfonamides; Z88.7 Allergy status to serum and vaccine
CPT/HCPCS: 36415; 71046; 80048; 84484; 85025; 87636; 93005; 99285

== ENCOUNTER 2024-11-12 10:13 | Observation (INO) | payer OTHER ==
--- NOTE | 2024-11-12 10:26 | ED ---
General Adult HPI - General Chief complaint: Chest Pain Stated complaint: chest pain Time Seen by Provider: 11/12/24 10:14 Source: patient, EMS, RN notes reviewed Mode of arrival: EMS Limitations: no limitations - History of Present Illness Initial comments: This is a 29-year-old male presenting to the emergency department via EMS for chief complaint of substernal chest pain described as a burning sensation that started after 09 30 this morning while he was at work. Patient was sitting at his desk when the pain started and mildly radiated into his left clavicle and down to his left ribs. He endorses associated difficulty breathing with the pain. Patient states that he was given aspirin and nitro en route that markedly improved his symptoms. Currently endorses mild chest discomfort. At the time of the event he denied associated diaphoresis, nausea or vomiting. 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 and had recent outpatient stress echo completed however missed his follow-up appointment where results were to be reviewed - Related Data Home Medications Medication Instructions Recorded Confirmed Timolol 0.5% Ophth Soln [Timoptic 1 drop BOTH EYES DIRECTED 09/12/17 11/12/24 0.5% Ophth Soln] Allergies Allergy/AdvReac Type Severity Reaction Status Date / Time Pertussis Vaccines Allergy Unknown Verified 11/12/24 10:51 Childhood sulfamethoxazole Allergy Anaphylaxis Verified 11/12/24 10:51 [From Bactrim] trimethoprim [From Bactrim] Allergy Anaphylaxis Verified 11/12/24 10:51 Review of Systems ROS Statement: Those systems with pertinent positive or pertinent negative responses have been documented in the HPI. ROS Other: All systems not noted in ROS Statement are negative. Past Medical History Past Medical History: Liver Disease Additional Past Medical History / Comment(s): glaucoma, IBS History of Any Multi-Drug Resistant Organisms: None Reported Past Surgical History: Ear Surgery Additional Past Surgical History / Comment(s): cataract surgery, myringotomy, dental procedure Past Psychological History: No Psychological Hx Reported Smoking Status: Never smoker Past Alcohol Use History: None Reported Past Drug Use History: None Reported General Exam Limitations: no limitations Eye exam: Present: normal appearance, PERRL, EOMI. Absent: scleral icterus, conjunctival injection, periorbital swelling Neck exam: Present: normal inspection. Absent: tenderness, meningismus, lymphadenopathy Respiratory exam: Present: normal lung sounds bilaterally. Absent: respiratory distress, wheezes, rales, rhonchi, stridor Cardiovascular Exam: Present: regular rate, normal rhythm, normal heart sounds. Absent: systolic murmur, diastolic murmur, rubs, gallop, clicks GI/Abdominal exam: Present: soft, normal bowel sounds. Absent: distended, tenderness, guarding, rebound, rigid Extremities exam: Present: normal inspection, full ROM, normal capillary refill. Absent: tenderness, pedal edema, joint swelling, calf tenderness Back exam: Present: normal inspection. Absent: CVA tenderness (R), CVA tenderne ss (L) Course Vital Signs 11/12/24 11/12/24 10:14 11:48 Temperature 99.2 F Pulse Rate 106 H 74 Respiratory 30 H 20 Rate Blood Pressure 125/102 118/87 O2 Sat by Pulse 96 99 Oximetry Medical Decision Making - Medical Decision Making Was pt. sent in by a medical professional or institution (, PA, HARVESTING SUPERVISOR, urgent care, hospital, or [facility]...) When possible be specific @ -No Did you speak to anyone other than the patient for history (EMS, parent, family, police, friend...)? What history was obtained from this source @ -No Did you review nursing and triage notes (agree or disagree)? Why? @ -I reviewed and agree with nursing and triage notes Were old charts reviewed (outside hosp., previous admission, EMS record, old EKG, old radiological studies, urgent care reports/EKG's, [facility] records)? Report findings @ -No old charts were reviewed Differential Diagnosis (chest pain, altered mental status, abdominal pain women, abdominal pain men, vaginal bleeding, weakness, fever, dyspnea, syncope, headache, dizziness, GI bleed, back pain, seizure, CVA, palpatations, mental health, musculoskeletal)? @ -Differential Chest Pain: Stable Angina, Unstable Angina, STEMI, NSTEMI Aortic Dissection, Pneumothorax, Musculoskeletal, Esophageal Spasm GERD, Cholecystitis, Pancreatitis, Zoster, this is not meant to be an all-inclusive list. EKG interpreted by me (3pts min.). @ -Completed at 1017 sinus rhythm with a ventricular rate of 102, QRS 84, QTc 379. X-rays interpreted by me (1pt min.). @ -Chest x-ray no acute cardiopulmonary process or disease CT interpreted by me (1pt min.). @ -None done U/S interpreted by me (1pt. min.). @ -None done What testing was considered but not performed or refused? (CT, X-rays, U/S, labs)? Why? @ -None What meds were considered but not given or refused? Why? @ -None Did you discuss the management of the patient with other professionals (professionals i.e. DrEstefania, PA, HARVESTING SUPERVISOR, lab, RT, psych nurse, social science manager, chief orthoptist, teacher, title officer, manager of case management)? Give summary @ -Spoke with on-call internal medicine physician, Dr. Hughes, who is agreed to meet the patient with cardiology on consult. Was smoking cessation discussed for >3mins.? @ -No Was critical care preformed (if so, how long)? @ -No Were there social determinants of health that impacted care today? How? (Homelessness, low income, unemployed, alcoholism, drug addiction, transportation, low edu. Level, literacy, decrease access to med. care, alf, rehab)? @ -No Was there de-escalation of care discussed even if they declined (Discuss DNR or withdrawal of care, Hospice)? DNR status @ -No What co-morbidities impacted this encounter? (DM, HTN, Smoking, COPD, CAD, Cancer, CVA, ARF, Chemo, Hep., AIDS, mental health diagnosis, sleep apnea, morbid obesity)? @ -None Was patient admitted / discharged? Hospital course, mention meds given and route, prescriptions, significant lab abnormalities, going to OR and other pert inent info. @ Admitted. 29 year old male presents emergency department via EMS for compla ints of chest pain. Patient provided with aspirin and nitro en route that has helped to improve his symptoms. EKG shows a sinus mechanism, NOT a fib, as detailed in the description of the EKG as there are discernable P waves with each complex. Patient is hypertensive on arrival with blood pressure 125/102 and tachycardic with a heart rate of 106. My evaluation the patient is resting comfortably no signs of acute distress. He was offered pain medication was declined stating that he is feeling well at this time. Laboratory test including CBC, CMP, troponin within normal. Chest x-ray unremarkable. Patient will be admitted to internal medicine with cardiology on consult to trend cardiac enzymes. Case discussed with Dr. Bayudan Undiagnosed new problem with uncertain prognosis? @ -No Drug Therapy requiring intensive monitoring for toxicity (Heparin, Nitro, Insulin, Cardizem)? @ -No Were any procedures done? @ -No Diagnosis/symptom? @ -Chest pain Acute, or Chronic, or Acute on Chronic? @ -Acute Uncomplicated (without systemic symptoms) or Complicated (systemic symptoms)? @ -complicated Side effects of treatment? @ -No Exacerbation, Progression, or Severe Exacerbation? @ -No Poses a threat to life or bodily function? How? (Chest pain, USA, [place], pneumonia, PE, COPD, DKA, ARF, appy, cholecystitis, CVA, Diverticulitis, Homicidal, Suicidal, threat to staff... and all critical care pts) @ -No - Lab Data Result diagrams: 11/12/24 10:43 11/12/24 10:43 Lab Results 11/12/24 11/12/24 11/12/24 Range/Units 10:43 10:43 10:43 WBC 4.66 (4.50-10.00) 10*3/uL RBC 4.71 (4.40-5.60) 10*6/uL Hgb 14.0 (13.0-17.0) g/dL Hct 39.6 (39.6-50.0) % MCV 84.1 (80.0-97.0) fL MCH 29.7 (27.0-32.0) pg MCHC 35.4 (32.0-37.0) g/dL Plt Count 193 (140-440) 10*3/uL MPV 9.4 L (9.5-12.2) fL Immature Gran % (Auto) 0.4 % Neutrophils % 60.6 % Lymphocytes % 29.6 % Monocytes % 7.9 % Eosinophils % 0.9 % Basophils % 0.6 % Immature Gran # 0.02 (0.00-0.04) 10*3/uL Neutrophils # 2.82 (1.80-7.70) 10*3/uL Lymphocytes # 1.38 (0.90-5.00) 10*3/uL Monocytes # 0.37 (0.20-1.00) 10*3/uL Eosinophils # 0.04 (0.04-0.35) 10*3/uL Basophils # 0.03 (0.00-0.10) 10*3/uL PT 11.4 (10.0-12.5) sec INR 1.0 (<1.2) APTT 21.2 L (22.0-30.0) sec Sodium 138 (137-145) mmol/L Potassium 4.1 (3.5-5.1) mmol/L Chloride 108 H (98-107) mmol/L Carbon Dioxide 18 L (22-30) mmol/L Anion Gap 12 mmol/L BUN 15 (9-20) mg/dL Creatinine 0.71 (0.66-1.25) mg/dL Est GFR (CKD-EPI)AfAm >90 (>60 ml/min/1.73 sqM) Est GFR (CKD-EPI)NonAf >90 (>60 ml/min/1.73 sqM) Glucose 87 (74-99) mg/dL Calcium 10.2 (8.4-10.2) mg/dL Magnesium 1.9 (1.6-2.3) mg/dL Total Bilirubin 0.7 (0.2-1.3) mg/dL AST 44 (17-59) U/L ALT 101 H (4-49) U/L Alkaline Phosphatase 70 (38-126) U/L Troponin I (0.000-0.034) ng/mL Total Protein 7.6 (6.3-8.2) g/dL Albumin 4.8 (3.5-5.0) g/dL Lipase 96 (23-300) U/L 04/ Range/Units 10:43 WBC (4.50-10.00) 10*3/uL RBC (4.40-5.60) 10*6/uL Hgb (13.0-17.0) g/dL Hct (39.6-50.0) % MCV (80.0-97.0) fL MCH (27.0-32.0) pg MCHC (32.0-37.0) g/dL Plt Count (140-440) 10*3/uL MPV (9.5-12.2) fL Immature Gran % (Auto) % Neutrophils % % Lymphocytes % % Monocytes % % Eosinophils % % Basophils % % Immature Gran # (0.00-0.04) 10*3/uL Neutrophils # (1.80-7.70) 10*3/uL Lymphocytes # (0.90-5.00) 10*3/uL Monocytes # (0.20-1.00) 10*3/uL Eosinophils # (0.04-0.35) 10*3/uL Basophils # (0.00-0.10) 10*3/uL PT (10.0-12.5) sec INR (<1.2) APTT (22.0-30.0) sec Sodium (137-145) mmol/L Potassium (3.5-5.1) mmol/L Chloride (98-107) mmol/L Carbon Dioxide (22-30) mmol/L Anion Gap mmol/L BUN (9-20) mg/dL Creatinine (0.66-1.25) mg/dL Est GFR (CKD-EPI)AfAm (>60 ml/min/1.73 sqM) Est GFR (CKD-EPI)NonAf (>60 ml/min/1.73 sqM) Glucose (74-99) mg/dL Calcium (8.4-10.2) mg/dL Magnesium (1.6-2.3) mg/dL Total Bilirubin (0.2-1.3) mg/dL AST (17-59) U/L ALT (4-49) U/L Alkaline Phosphatase (38-126) U/L Troponin I <0.012 (0.000-0.034) ng/mL Total Protein (6.3-8.2) g/dL Albumin (3.5-5.0) g/dL Lipase (23-300) U/L Disposition Clinical Impression: Chest pain Disposition: ADMITTED IP TO THIS [facility] Condition: Stable Decision to Admit Reason: Admit from EC Decision Date: 11/12/24 Decision Time: 12:30
[2024-11-12 10:49] LABS: Basophils # (A) 0.03 10*3/uL (0.00-0.10); Basophils % (A) 0.6 %; Eosinophils # (A) 0.04 10*3/uL (0.04-0.35); Eosinophils % (A) 0.9 %; HCT 39.6 % (39.6-50.0); Lymphocytes # (A) 1.38 10*3/uL (0.90-5.00); Lymphocytes % (A) 29.6 %; MCH 29.7 pg (27.0-32.0); MCHC 35.4 g/dL (32.0-37.0); MCV 84.1 fL (80.0-97.0); Mean Platelet Volume 9.4 fL (9.5-12.2); Monocytes # (A) 0.37 10*3/uL (0.20-1.00); Monocytes % (A) 7.9 %; Neutrophils # (A) 2.82 10*3/uL (1.80-7.70); Neutrophils % (A) 60.6 %; Platelet Count 193 10*3/uL (140-440); RBC 4.71 10*6/uL (4.40-5.60); RDW 12.3 % (11.5-14.5); WBC 4.66 10*3/uL (4.50-10.00)
--- NOTE | 2024-11-12 10:59 | XR ---
EXAMINATION TYPE: XR chest 2V DATE OF EXAM: 11/12/2024 10:52 AM COMPARISON: Chest radiographs from 10/12/2024 TECHNIQUE: XR chest 2V Frontal and lateral views of the chest. CLINICAL INDICATION:Male, 29 years old with history of Chest Pain; FINDINGS: Lungs/Pleura: There is no evidence of pleural effusion, focal consolidation, or pneumothorax. Pulmonary vascularity: Unremarkable. Heart/mediastinum: Cardiomediastinal silhouette is unremarkable. Musculoskeletal: No acute osseous pathology. IMPRESSION: No acute cardiopulmonary disease/process. [facility], , 11/12/2024 10:56 AM
[2024-11-12 11:17] LABS: Prothrombin Time 11.4 sec (10.0-12.5)
[2024-11-12 11:29] LABS: Partial Thromboplastin Time 21.2 sec (22.0-30.0)
[2024-11-12 11:57] LABS: ALT 101 U/L (4-49); AST 44 U/L (17-59); African American GFR (CKD) >90 (>60 ml/min/1.73 sqM); Albumin 4.8 g/dL (3.5-5.0); Alkaline Phosphatase 70 U/L (38-126); Anion Gap 12 mmol/L; Blood Urea Nitrogen 15 mg/dL (9-20); Calcium 10.2 mg/dL (8.4-10.2); Carbon Dioxide 18 mmol/L (22-30); Chloride 108 mmol/L (98-107); Glucose 87 mg/dL (74-99); Lipase 96 U/L (23-300); Magnesium 1.9 mg/dL (1.6-2.3); Non-African American GFR(CKD) >90 (>60 ml/min/1.73 sqM); Potassium 4.1 mmol/L (3.5-5.1); Sodium 138 mmol/L (137-145); Total Bilirubin 0.7 mg/dL (0.2-1.3); Total Protein 7.6 g/dL (6.3-8.2)
[2024-11-12] MEDS ORDERED: MORPHINE SULFATE 4 MG/ML SYRINGE IV PRN (12:30)
[2024-11-12] MEDS ORDERED: NALOXONE 0.4 MG/ML 1 ML VIAL IV PRN (12:30)
[2024-11-12] MEDS ORDERED: IBUPROFEN 400 MG TAB PO PRN (12:30)
[2024-11-12] MEDS: ACETAMINOPHEN TAB 325 MG TAB PO PRN (18:26)
--- NOTE | 2024-11-12 21:03 | P.HPIM ---
History of Present Illness H&P Date: 11/12/24 Chief Complaint: Chest pain Patient is a 29-year-old male with known history of IBS, glaucoma presents to ER with complaints of left retrosternal chest pain radiating down along the left border to the ribs started around 930 this morning while he was at work. Patient also felt numbness of the fingertips. Denied any associated nausea or vomiting or diaphoresis. No dizziness or lightheadedness. Patient did have mild shortness of breath with pain. He was given aspirin and nitro and out by EMS which seemed to improve his symptoms. He started having headache after that which is also improved now. Patient was seen by cardiology in the office and had stress echocardiogram recently. Patient also states that 6 weeks ago he had upper respite infection with shortness of breath breath and was on Z-[place]. No leg swelling. No cough or sputum production. Chest x-ray showed showed no acute cardiopulmonary process. EKG showed atrial fibrillation with rapid ventricular response with heart rate of 102. Laboratory data showed WBC 4.6 hemoglobin 14.0 and platelets 193 sodium 138 potassium 4.1 chloride 108 bicarb is 18 BUN 15 and creatinine 0.7 blood sugar 87 AST 44 ALT 101 and alk phos 70 and troponin x 3 negative lipase 96. Review of Systems Constitutional: Patient denies any fever or chills . No generalized weakness or weight loss. Abdomen: Patient denied nausea vomiting and diarrhea and abdominal pain. Cardiovascular: Patient denies any chest pain or short of breath no palpitations. Respiratory: patient denied any cough or sputum production. No shortness of breath Neurologic: Patient denied any numbness or tingling. no headache. Musculoskeletal: Patient denies any complaints of joint swelling or deformity. Skin: Negative Psychiatric: Negative Endocrine: No heat or cold intolerance. No recent weight gain. Genitourinary: No dysuria or hematuria. All other 14 point ROS negative except the above Past Medical History Past Medical History: Liver Disease Additional Past Medical History / Comment(s): glaucoma, IBS History of Any Multi-Drug Resistant Organisms: None Reported Past Surgical History: Ear Surgery Additional Past Surgical History / Comment(s): cataract surgery, myringotomy, dental procedure Past Psychological History: No Psychological Hx Reported Smoking Status: Never smoker Past Alcohol Use History: None Reported Past Drug Use History: None Reported Medications and Allergies Home Medications Medication Instructions Recorded Confirmed Type Timolol 0.5% Ophth Soln [Timoptic 1 drop BOTH EYES DIRECTED 09/12/17 11/12/24 History 0.5% Ophth Soln] Allergies Allergy/AdvReac Type Severity Reaction Status Date / Time Pertussis Vaccines Allergy Unknown Verified 11/12/24 10:51 Childhood sulfamethoxazole Allergy Anaphylaxis Verified 11/12/24 10:51 [From Bactrim] trimethoprim [From Bactrim] Allergy Anaphylaxis Verified 11/12/24 10:51 Physical Exam Vitals: Vital Signs Temp Pulse Pulse Resp BP BP Pulse Ox 11/12/24 14:02 97.8 F 97 16 122/86 97 11/12/24 13:00 87 20 116/90 98 11/12/24 11:48 74 20 118/87 99 11/12/24 10:14 99.2 F 106 H 30 H 125/102 96 Intake and Output 11/11/24 11/12/24 11/12/24 22:59 06:59 14:59 Other: Weight 77.111 kg PHYSICAL EXAMINATION: Patient is lying in the bed comfortably, no acute distress, awake alert and oriented.. HEENT: Normocephalic. Neck is supple. Pupils reactive. Nostrils clear. Oral cavity is moist. Neck reveals no JVD, carotid bruits, or thyromegaly. CHEST EXAMINATION: Trachea is central. Symmetrical expansion. Lung toth clear to auscultation and percussion. CARDIAC: Normal S1, S2 with no gallops. No murmurs ABDOMEN: Soft. Bowel sounds normal. No organomegaly. No abdominal bruits. Extremities: reveal no edema. No clubbing or cyanosis Neurologically awake, alert, oriented x3 with well-coordinated movements. No focal deficits noted Skin: No rash or skin lesions. Psychiatric: Coperative. Nonsuicidal Musculoskeletal: No joint swelling or deformity. Normal range of motion. Results CBC & Chem 7: 11/12/24 10:43 11/12/24 10:43 Labs: Abnormal Lab Results - Last 24 Hours (Table) 11/12/24 11/12/24 11/12/24 Range/Units 10:43 10:43 10:43 MPV 9.4 L (9.5-12.2) fL APTT 21.2 L (22.0-30.0) sec Chloride 108 H (98-107) mmol/L Carbon Dioxide 18 L (22-30) mmol/L ALT 101 H (4-49) U/L Thrombosis Risk Factor Assmnt - DVT/VTE Prophylaxis DVT/VTE Prophylaxis: Pharmacologic Prophylaxis ordered Assessment and Plan Assessment: New onset atrial fibrillation with rapid ventricular response as per EKG. Currently in sinus rhythm Atypical chest pain. Ruled out ACS. History of IBS and glaucoma GI prophylaxis with Pepcid Plan: Patient will be continued on telemonitoring. Heart rate is controlled. Sinus rhythm on telemetry. Patient's [id number] 0. Was given a dose of aspirin. Follow-up TSH level and cardiology evaluation. Time with Patient: Greater than 30
[2024-11-12 21:31] LABS: Chol/HDL Ratio 5.45 Ratio; LDL Cholesterol,Calculated 165.6 mg/dL (0.0-131.0)
[2024-11-12 21:36] VITALS: TEMP 97.7
[2024-11-12] MEDS: ASPIRIN 81 MG PO STA (21:36)
[2024-11-12] MEDS: FAMOTIDINE 20 MG TAB PO SCH (21:36)
[2024-11-13 07:45] VITALS: BP 119/76; PULSE 94; RESP 16
[2024-11-13 08:18] LABS: Basophils # (A) 0.03 X 10*3/uL (0.00-0.10); Basophils % (A) 0.4 %; Eosinophils # (A) 0.09 X 10*3/uL (0.04-0.35); Eosinophils % (A) 1.1 %; HGB 14.4 g/dL (13.0-17.0); Lymphocytes # (A) 1.54 X 10*3/uL (0.90-5.00); Lymphocytes % (A) 18.2 %; MCH 28.8 pg (27.0-32.0); MCHC 33.5 g/dL (32.0-37.0); Monocytes # (A) 0.65 X 10*3/uL (0.20-1.00); Monocytes % (A) 7.7 %; NRBC Per 100 WBC 0 X 10*3/uL (0.00-0.01); Neutrophils # (A) 6.12 X 10*3/uL (1.80-7.70); Neutrophils % (A) 72.2 %; Platelet Count 210 X 10*3/uL (140-440); RDW 12.7 % (11.5-14.5); WBC 8.46 X 10*3/uL (4.50-10.00)
[2024-11-13 08:38] LABS: ALT 100 U/L (10-49); AST 37 U/L (14-35); Albumin 4.3 g/dL (3.8-4.9); Albumin/Globulin Ratio 1.72 Ratio (1.60-3.17); Alkaline Phosphatase 73 U/L (41-126); BUN/Creat Ratio 22.75 Ratio (12.00-20.00); Blood Urea Nitrogen 18.2 mg/dL (9.0-27.0); Calcium 9.3 mg/dL (8.7-10.3); Carbon Dioxide 20.5 mmol/L (21.6-31.8); Chloride 105 mmol/L (96-109); Globulin 2.5 g/dL (1.6-3.3); Glucose 99 mg/dL (70-110); Potassium 4.2 mmol/L (3.5-5.5); Sodium 137 mmol/L (135-145); Total Bilirubin 0.4 mg/dL (0.3-1.2); Total Protein 6.8 g/dL (6.2-8.2)
[2024-11-13] MEDS ORDERED: TIMOLOL 0.5% OPHTH DROPS 5 ML BTL BOTH EYES SCH (09:00)
--- NOTE | 2024-11-13 10:54 | P.CRDCN ---
History of Present Illness Consult date: 11/13/24 Consult reason: chest pain History of present illness: This is a 29-year-old male patient of Dr. Rod Garcia with past medical history of congenital cataracts and glaucoma, family history of premature coronary artery disease. We have been asked to evaluate the patient for chest pain. Patient gives history that yesterday, he was at work and developed chest pain in the midsternal area. He states he then loss of feeling in his hands and feet and his hands were shaking. He states he was sitting working on a computer and was not doing any physical activity at that time. He states he has had this along with fluttering in his chest. He states he looked at his watch and it was saying his heart rate was jumping from 80-130. He states this is happening about 1-2 times per week now which is more frequent than in the past. Episode lasted about 30 to 45 minutes. He thought it was better with nitroglycerin. When he is active physically he does not have any chest pain or palpitations. He states he recently started a new job. His girlfriend is and they are looking for a house and he had bad news about his credit report so he has been under increased stress. Blood pressure 119/76, heart rate 94, pulse ox 97% on room air. -EKG: Sinus rhythm with nonspecific ST changes -Chest x-ray: No acute process -Laboratory studies: Troponin negative x 3. CBC normal. Electrolytes and renal function are unremarkable. Triglycerides 213, cholesterol 255, LDL 165. TSH 3.4. -Home cardiac medications: None -Stress echocardiogram performed in the office on 10/01/2024 revealed good exercise tolerance. Inconclusive EKG part of the stress test due to baseline EKG abnormalities. Negative stress echo. -Treadmill exercise stress test performed in the office on 08/24/2024 revealed good exercise tolerance. No symptoms typical of angina. No dysrhythmias. Moderately positive electrocardiographic stress test. Review Of Systems: At the time of my exam: CONSTITUTIONAL: Denies fever or chills. HEENT: Denies blurred vision, vision changes, or eye pain. Denies hemoptysis CARDIOVASCULAR: Denies chest pain. Denies orthopnea. Denies PND. Denies palpitations RESPIRATORY: Denies shortness of breath. GASTROINTESTINAL: Denies abdominal pain. Denies nausea or vomiting. HEMATOLOGIC: Denies bleeding disorders. GENITOURINARY: Denies any blood in urine. SKIN: Denies puritis. Denies rash. Physical examination: Gen: This is a 29-year-old male in no acute distress VS: reviewed HEENT: Head is atraumatic, normocephalic. Pupils equal, round. Sclerae is anicteric. NECK: Supple. No JVD. LUNGS: Clear to auscultation. No wheezes or rhonchi. No intercostal retractions. HEART: Regular rate and rhythm. No murmur. ABDOMEN: Soft No tenderness. EXTREMITIES: No pedal edema. No calf tenderness. NEUROLOGICAL: Patient is awake, alert and oriented x3. Assessment: Atypical chest pain, acute coronary syndrome ruled out Possible emotional stress induced chest pain and palpitations Palpitations Family history of premature coronary artery disease Plan: Start patient on a atorvastatin 40 mg at bedtime Follow-up with Dr. Rod Dickens in 2 weeks. No further cardiac workup is planned. Patient is cleared for discharge. Thank you kindly for this consultation. Nurse practitioner note has been reviewed, I agree with documented findings and plan of care. Patient was seen and examined. Past Medical History Past Medical History: Liver Disease Additional Past Medical History / Comment(s): glaucoma, IBS History of Any Multi-Drug Resistant Organisms: None Reported Past Surgical History: Ear Surgery Additional Past Surgical History / Comment(s): cataract surgery, myringotomy, dental procedure Past Anesthesia/Blood Transfusion Reactions: No Reported Reaction Past Psychological History: No Psychological Hx Reported Smoking Status: Never smoker Past Alcohol Use History: None Reported Past Drug Use History: None Reported Medications and Allergies Home Medications Medication Instructions Recorded Confirmed Type Timolol 0.5% Ophth Soln [Timoptic 1 drop BOTH EYES DIRECTED 09/12/17 11/12/24 History 0.5% Ophth Soln] Allergies Allergy/AdvReac Type Severity Reaction Status Date / Time Pertussis Vaccines Allergy Unknown Verified 11/12/24 10:51 Childhood sulfamethoxazole Allergy Anaphylaxis Verified 11/12/24 10:51 [From Bactrim] trimethoprim [From Bactrim] Allergy Anaphylaxis Verified 11/12/24 10:51 Physical Exam Vitals: Vital Signs Temp Pulse Pulse Resp BP BP Pulse Ox 11/13/24 07:00 97.7 F 94 16 119/76 97 11/13/24 02:51 97.7 F 79 15 117/72 98 11/13/24 01:34 89 16 11/12/24 20:47 89 16 11/12/24 19:12 97.7 F 89 16 109/73 98 11/12/24 14:50 97.9 F 94 16 117/80 97 11/12/24 14:02 97.8 F 97 16 122/86 97 11/12/24 13:00 87 20 116/90 98 11/12/24 11:48 74 20 118/87 99 11/12/24 10:14 99.2 F 106 H 30 H 125/102 96 Intake and Output 11/12/24 11/13/24 11/13/24 22:59 06:59 14:59 Other: Voiding Method Toilet Toilet # Voids 1 0 Weight 77.111 kg Results 11/13/24 04:20 11/13/24 04:20 Cardiac Enzymes 11/12/24 11/12/24 11/12/24 Range/Units 10:43 10:43 15:24 AST 44 (17-59) U/L Troponin I <0.012 <0.012 (0.000-0.034) ng/mL 11/12/24 11/13/24 Range/Units 18:31 04:20 AST 37 H (17-59) U/L Troponin I <0.012 (0.000-0.034) ng/mL Coagulation 11/12/24 Range/Units 10:43 PT 11.4 (10.0-12.5) sec APTT 21.2 L (22.0-30.0) sec Lipids 11/12/24 Range/Units 10:43 Triglycerides 213.00 H (0.00-149.00) mg/dL Cholesterol 255.00 H (0.00-200.00) mg/dL HDL Cholesterol 46.80 (40.00-60.00) mg/dL Cholesterol/HDL Ratio 5.45 Ratio CBC 11/12/24 11/13/24 Range/Units 10:43 04:20 WBC 4.66 8.46 (4.50-10.00) 10*3/uL RBC 4.71 5.00 (4.40-5.60) 10*6/uL Hgb 14.0 14.4 (13.0-17.0) g/dL Hct 39.6 43.0 (39.6-50.0) % Plt Count 193 210 (140-440) 10*3/uL Comprehensive Metabolic Panel 11/12/24 11/13/24 Range/Units 10:43 04:20 Sodium 138 137 (137-145) mmol/L Potassium 4.1 4.2 (3.5-5.1) mmol/L Chloride 108 H 105 (98-107) mmol/L Carbon Dioxide 18 L 20.5 L (22-30) mmol/L BUN 15 18.2 (9-20) mg/dL Creatinine 0.71 0.8 (0.66-1.25) mg/dL Glucose 87 99 (74-99) mg/dL Calcium 10.2 9.3 (8.4-10.2) mg/dL AST 44 37 H (17-59) U/L ALT 101 H 100 H (4-49) U/L Alkaline Phosphatase 70 73 (38-126) U/L Total Protein 7.6 6.8 (6.3-8.2) g/dL Albumin 4.8 4.3 (3.5-5.0) g/dL Current Medications Generic Name Dose Route Start Last Admin Trade Name Freq PRN Reason Stop Dose Admin Acetaminophen 650 mg 11/12/24 12:30 11/12/24 18:26 Acetaminophen Tab 325 Mg Tab PO 650 mg Q6HR PRN Administration Mild Pain or Fever > 100.5 Famotidine 20 mg 11/12/24 21:15 11/13/24 06:33 Famotidine 20 Mg Tab PO 20 mg BID PATRICIA Administration Morphine Sulfate 4 mg 11/12/24 12:30 Morphine Sulfate 4 Mg/Ml Syringe IV Q4HR PRN Severe Pain (Scale 7 to 10) Naloxone HCl 0.2 mg 11/12/24 12:30 Naloxone 0.4 Mg/Ml 1 Ml Vial IV Q2M PRN Opioid Reversal Timolol Maleate 1 drops 11/13/24 09:00 Timolol 0.5% Ophth Drops 5 Ml Btl BOTH EYES DAILY PATRICIA Intake and Output 11/12/24 11/13/24 11/13/24 22:59 06:59 14:59 Other: Voiding Method Toilet Toilet # Voids 1 0 Weight 77.111 kg 11/13/24 04:20 11/13/24 04:20
[2024-11-13] MEDS ORDERED: ATORVASTATIN 40 MG TAB PO SCH (21:00)
--- NOTE | 2024-11-15 12:11 | P.DS ---
Providers Date of admission: 11/12/24 12:22 Expected date of discharge: 11/13/24 Attending physician: Angel Albert Consults: 11/12/24 12:30 Consult Physician Routine Consulting Provider: [facility] Consult Reason/Comments: chest pain Do you want consulting provider notified?: Yes Primary care physician: Denver Asher Hospital Course: Final diagnosis New onset atrial fibrillation with rapid ventricular response as per EKG. likely tachycardia, currently in sinus rhythm Atypical chest pain. Ruled out ACS. Hyperlipidemia Possible mostly and stress-induced palpitations, improved History of IBS and glaucoma Strong family history of premature coronary artery disease and hyperlipidemia GI prophylaxis with Pepcid DVT prophylaxis Full code Discharge disposition Patient is being discharged in a stable condition with guarded prognosis to home. Patient will follow-up with Dr. Asher in the outpatient setting upon discharge. Patient is to continue with current medications and outpatient follow-up with cardiology as scheduled. Total time taken is greater than 35 minutes. Hospital course This is a 29 [id number] male who was recently admitted concerns of new onset A-fib as noted on EKG and evaluated by cardiology likely stress and emotionally induced chest pain and palpitations, noted to be sinus rhythm on the monitor. Patient did have fasting labs done showing hyperlipidemia and was instructed to start a statin therapy. Family skeptical on starting this as they have had multiple issues with previous family members not tolerating. Strong family history of high cholesterol and coronary artery disease. Patient and mother at the bedside report they would like to try with aggressive diet control prior to initiating statin therapy. Prescription was sent to pharmacy and was instructed to discuss this with primary care provider as well as cardiology outpatient. Patient and mother verbalized understanding. Patient has been cleared by cardiology for outpatient follow-up. Please refer to other consultation notes for further HPI. Currently no reports of chest pain, shortness of breath, or palpitations. Patient is afebrile. No reports of nausea or vomiting and patient is tolerating diet. Patient will be discharged home today. Physical exam: Gen: This is a 29-year-old male who is awake, alert and oriented x 3, well-developed, appears older than stated age HEENT: Head is atraumatic, normocephalic. Pupils equal, round. Sclerae is anicteric. NECK: Supple. No JVD. No lymphadenopathy. No thyromegaly. LUNGS: Clear to auscultation. No wheezes or rhonchi. No intercostal retractions. HEART: Regular rate and rhythm. No murmur. ABDOMEN: Soft. Bowel sounds are present. No masses. No tenderness. EXTREMITIES: No pedal edema. No calf tenderness. NEUROLOGICAL: Patient is awake, alert and oriented x3. Cranial nerves 2 through 12 are grossly intact. Please refer to medication reconciliation sheet for a list of medications. The impression and plan of care has been dictated by Nicole Bobo, Nurse Practitioner as directed. Dr. Roosevelt MD I have performed a history and examination and MDM of this patient, discussed the same with the dictator, and agree with the dictator's assessment and plan as written ,documented as a scribe. Based on total visit time, I have performed more than 50% of the visit. Patient Condition at Discharge: Stable Plan - Discharge Summary Discharge Rx Participant: Yes New Discharge Prescriptions: New Atorvastatin [Lipitor] 40 mg PO HS #30 tab Famotidine [Pepcid] 20 mg PO BID 15 Days #30 tab Acetaminophen Tab [Tylenol] 650 mg PO Q6HR PRN tab PRN Reason: Mild Pain Or Fever > 100.5 Continue Timolol 0.5% Ophth Soln [Timoptic 0.5% Ophth Soln] 1 drop BOTH EYES DIRECTED Discharge Medication List Timolol 0.5% Ophth Soln [Timoptic 0.5% Ophth Soln] 1 drop BOTH EYES DIRECTED 09/12/17 [History] Acetaminophen Tab [Tylenol] 650 mg PO Q6HR PRN tab 11/13/24 [Rx] Atorvastatin [Lipitor] 40 mg PO HS #30 tab 11/13/24 [Rx] Famotidine [Pepcid] 20 mg PO BID 15 Days #30 tab 11/13/24 [Rx] Follow up Appointment(s)/Referral(s): Denver Asher MD [Primary Care Provider] - 1-2 days Kirk Garcia MD [STAFF PHYSICIAN] - 11/19/24 9:45 am Patient Instructions/Handouts: Chest Pain (DC), Hyperlipidemia (DC) Activity/Diet/Wound Care/Special Instructions: Activity limited until follow-up Follow-up with primary care provider on discharge Follow-up with cardiology outpatient Recommend diet modifications and low-cholesterol diet If deciding not to take the cholesterol medication, discuss with your primary care provider as well as cardiology Discharge Disposition: HOME SELF-CARE
== END 2024-11-13 14:57 | disposition home or self-care (01) ==
LOC: EC 10:13 → 6NMEDSUR 12:22
PROVIDERS: ADMIT Internal Medicine; ATTEND Internal Medicine
DX: R07.89 Other chest pain (principal); I48.91 Unspecified atrial fibrillation; E78.5 Hyperlipidemia, unspecified; F43.9 Reaction to severe stress, unspecified; R20.0 Anesthesia of skin; R03.0 Elevated blood-pressure reading, without diagnosis of hypertension; K58.9 Irritable bowel syndrome, unspecified; R07.2 Precordial pain; Q12.0 Congenital cataract; Q15.0 Congenital glaucoma; Z88.1 Allergy status to other antibiotic agents; Z88.2 Allergy status to sulfonamides; Z88.7 Allergy status to serum and vaccine; Z79.899 Other long term (current) drug therapy; Z83.42 Family history of familial hypercholesterolemia; Z82.49 Family history of ischemic heart disease and other diseases of the circulatory system
CPT/HCPCS: 99285; 36415; 93005 ×2; 80061; 80053 ×2; 84443; 83690; 83735; 84484; 85025 ×2; 85610; 85730; 71046; G0378 ×2